=== PATIENT | female | born 1945 | race Hispanic/Latino ===

== ENCOUNTER 2018-03-12 14:20 | Emergency (ER) | payer OTHER ==
[2018-03-12 15:58] LABS: Absolute Lymphocytes (CBC) 1.4 K/uL (0.7-4.9); Absolute Monocytes 0.4 K/uL (0.1-1.3); Absolute Neutrophil 7.9 K/uL (1.8-8.0); Basophils % 0.5 % (0-1.3); Eosinophils % 0.6 % (0-4.4); Hematocrit 32.8 % (36.0-45.0); Lymphocytes % 13.9 % (15.3-44.8); MCH 28.1 pg (27.0-35.0); MCV 83.6 fL (80-100); Monocytes % 4.5 % (3.3-12.3); RBC Red Blood Cell Count 3.93 M/uL (3.86-4.86)
[2018-03-12] MEDS ORDERED: NA CHLORIDE 0.9% 500 ML ONE ×2 (16:01→16:46)
[2018-03-12] MEDS ORDERED: DIAZEPAM 10 MG/2 ML INJ SYRINGE ONE (16:03)
[2018-03-12 16:07] LABS: Bicarbonate 23 mEq/L (21-31); Glucose Level 169 mg/dL (65-120); Lipase 44 U/L (22-51); Potassium 3.7 mEq/L (3.6-5.0); Sodium Level 136 mEq/L (135-145)
[2018-03-12 16:13] LABS: ALT/SGPT 53 IU/L (10-60); AST/SGOT 54 IU/L (10-42); Albumin 3.3 g/dL (3.2-5.5); Alkaline Phosphatase 116 IU/L (42-121); BUN Blood Urea Nitrogen 32 mg/dL (6-20); Bilirubin Direct < 0.1 mg/dL (0-0.2); Bilirubin Total 0.6 mg/dL (0.3-1.2); Protein, Total 8.7 g/dL (6.0-8.3)
--- NOTE | 2018-03-12 16:33 | EKG ---
Test Date: 2018-03-12 Test Time: 15:38:13 Child Welfare Director: IRMA MEASUREMENT RESULTS: Intervals: Rate: 76 CA: 162 QRSD: 74 QT: 394 QTc: 443 [place]: P: 24 CA: 162 QRS: 32 T: 10 INTERPRETIVE STATEMENTS: Normal sinus rhythm Normal ECG Compared to ECG 07/05/2011 05:32:50 No significant changes Electronically Signed On 03-12-18 16:33:05 CDT by Shaun Warren
--- NOTE | 2018-03-12 17:02 | ER ---
Nurse's Notes [facility] Name: Jai Roman Age: 72 yrs Sex: Female : 1945 Arrival Date: 03/12/2018 Time: 14:24 Bed 2 Private MD: Tesfaye Wheeler R Diagnosis: Dehydration;Dizziness and giddiness Presentation: 03/12 14:32 Presenting complaint: Child states: pt has been real weak since last night and started iw vomiting this morning X 4, had some abd pain last night. Transition of care: patient was not received from another setting of care. Onset of symptoms was March 12, 2018. Initial Sepsis Screen: Does the patient meet any 2 criteria? No. Patient's initial sepsis screen is negative. Does the patient have a suspected source of infection? No. Patient's initial sepsis screen is negative. Care prior to arrival: None. 14:32 Method Of Arrival: Wheelchair iw 14:32 Acuity: ADALBERTO 3 iw Triage Assessment: 16:13 General: Appears in no apparent distress. GI: Reports nausea. tw2 Historical: - Allergies: 14:34 NKA; iw - Home Meds: 14:34 amlodipine 10 mg tab 1 tab once daily [Active]; carvedilol 25 mg Oral tab 1 tab 2 times iw per day [Active]; omeprazole 40 mg Oral cpDR 1 cap once daily [Active]; glimepiride 1 mg Oral tab twice a day [Active]; 16:12 metformin 1,000 mg Oral tab 1 tab 2 times per day [Active]; lisinopril 20 mg Oral tab 2 tw2 tabs once daily [Active]; pravastatin 20 mg Oral tab 1 tab once daily [Active]; - PMHx: 14:34 Diabetes - NIDDM; High Cholesterol; Hypertension; iw - PSHx: 14:34 Hernia repair; Cholecystectomy; iw - Immunization history:: Adult Immunizations not up to date. - Social history:: Smoking status: Patient/guardian denies using tobacco. Screenin:13 Abuse screen: Denies threats or abuse. Nutritional screening: No deficits noted. tw2 Tuberculosis screening: No symptoms or risk factors identified. Fall Risk None identified. Assessment: 15:50 General: Appears in no apparent distress. well groomed, Behavior is calm, cooperative, tw2 appropriate for age. Pain: Complains of pain in abdomen. Neuro: Level of Consciousness is awake, alert, obeys commands, Oriented to person, place, time, situation. Cardiovascular: Denies chest pain, shortness of breath, Heart tones S1 S2 Capillary refill < 3 seconds Patient's skin is warm and dry. Cardiovascular: Reports. Respiratory: GI: Abdomen is round non-distended, Bowel sounds present X 4 quads. : No signs and/or symptoms were reported regarding the genitourinary system. EENT: No signs and/or symptoms were reported regarding the EENT system. Derm: Skin is intact, is fragile, is thin, Skin temperature is warm. Musculoskeletal: Range of motion: intact in all extremities, Reports weakness in all over. 17:23 Reassessment: Patient appears in no apparent distress at this time. No changes from tw2 previously documented assessment. Patient and/or family updated on plan of care and expected duration. Pain level reassessed. Patient is alert, oriented x 3, equal unlabored respirations, skin warm/dry/pink. 17:43 Reassessment: Patient appears in no apparent distress at this time. No changes from tw2 previously documented assessment. Patient and/or family updated on plan of care and expected duration. Pain level reassessed. Patient is alert, oriented x 3, equal unlabored respirations, skin warm/dry/pink. Patient states feeling better. Vital Signs: 14:34 BP 147 / 68; Pulse 71; Resp 16; Temp 98.2(TE); Pulse Ox 98% on R/A; Weight 58.97 kg; iw Height 4 ft. 11 in. (149.86 cm); Pain 0/10; 15:36 BP 159 / 66; Pulse 74; Resp 17; Pulse Ox 99% on R/A; jb1 16:00 BP 141 / 61; Pulse 67; Resp 16; Pulse Ox 96% ; jl7 16:30 BP 139 / 71; Pulse 83; Resp 16; Pulse Ox 98% ; jl7 17:23 BP 145 / 62; Pulse 74; Resp 16; Pulse Ox 99% on R/A; tw2 14:34 Body Mass Index 26.26 (58.97 kg, 149.86 cm) iw ED Course: 14:24 Patient arrived in ED. mr 14:24 Tesfaye Wheeler MD is Private Physician. mr 14:32 Triage completed. iw 14:34 Arm band placed on. iw 15:36 Initial lab(s) drawn, by me. Inserted saline lock: 22 gauge in right antecubital area, jb1 using aseptic technique. Blood collected. 15:38 Rogelio Nguyen MD is Attending Physician. gs 15:47 Kacie Chicas RN is Primary Nurse. tw2 15:52 Placed in gown. Bed in low position. Side rails up X2. secured entrance monitor on. Pulse ox on. tw2 NIBP on. Warm blanket given. 15:52 EKG done, by technologist infectious disease. reviewed by Martín Mccain MD. at1 16:13 No provider procedures requiring assistance completed. tw2 17:16 Awaiting: completion of IV fluids prior to discharge. tw2 17:44 IV discontinued, intact, bleeding controlled, No redness/swelling at site. Pressure tw2 dressing applied. Administered Medications: 16:06 Drug: Valium 2 mg Route: IVP; Site: right antecubital; tw2 16:37 Follow up: Response: No adverse reaction tw2 16:06 Drug: NS 0.9% 500 ml Route: IV; Rate: bolus; Site: right antecubital; tw2 16:37 Follow up: Response: No adverse reaction; IV Status: Completed infusion; IV Intake: tw2 500ml 17:16 Drug: NS 0.9% 500 ml Route: IV; Rate: bolus; Site: right antecubital; tw2 17:43 Follow up: Response: No adverse reaction; IV Status: Completed infusion; IV Intake: tw2 500ml Intake: 16:37 IV: 500ml; Total: 500ml. tw2 17:43 IV: 500ml; Total: 1000ml. tw2 Outcome: 17:02 Discharge ordered by . gs 17:44 Discharged to home ambulatory, with family. tw2 17:44 Condition: stable 17:44 Discharge instructions given to patient, family, Instructed on discharge instructions, follow up and referral plans. Demonstrated understanding of instructions, follow-up care. 17:44 Patient left the ED. tw2 Signatures: Bon Gonzalez jb1 Suma Bianchi Irene, OLYA DOBSON iw Lani scott, blueprint trimmer EKG Tat1 Kacie Chicas RN RN tw2 David Stokes RN RN jl7 Nguyen, Rogelio, MD MD gs
--- NOTE | 2018-03-12 17:02 | EDPHYS ---
Physician Documentation [facility] Name: Jai Roman Age: 72 yrs Sex: Female : 1945 Arrival Date: 03/12/2018 Time: 14:24 Bed 2 Private MD: Tesfaye Wheeler R ED Physician Rogelio Nguyen HPI: 03/12 16:52 This 72 yrs old Female presents to ER via Wheelchair with complaints of gs Nausea, Weakness. 16:52 The patient presents with sense of spinning, vertigo. gs 16:55 Onset: The symptoms/episode began/occurred today. Context: occurred at home. Modifying gs factors: The symptoms are alleviated by nothing, the symptoms are aggravated by movement of head, standing up. Associated signs and symptoms: Pertinent positives: vomiting. Severity of symptoms: At their worst the symptoms were moderate in the emergency department the symptoms have improved markedly. The patient has experienced similar episodes in the past, a few times. The patient has not recently seen a physician. Historical: - Allergies: 14:34 NKA; iw - Home Meds: 14:34 amlodipine 10 mg tab 1 tab once daily [Active]; carvedilol 25 mg Oral tab 1 tab 2 times iw per day [Active]; omeprazole 40 mg Oral cpDR 1 cap once daily [Active]; glimepiride 1 mg Oral tab twice a day [Active]; 16:12 metformin 1,000 mg Oral tab 1 tab 2 times per day [Active]; lisinopril 20 mg Oral tab 2 tw2 tabs once daily [Active]; pravastatin 20 mg Oral tab 1 tab once daily [Active]; - PMHx: 14:34 Diabetes - NIDDM; High Cholesterol; Hypertension; iw - PSHx: 14:34 Hernia repair; Cholecystectomy; iw - Immunization history:: Adult Immunizations not up to date. - Social history:: Smoking status: Patient/guardian denies using tobacco. ROS: 16:55 All other systems are negative. gs Exam: 16:55 Head/Face: Normocephalic, atraumatic. ENT: Nares patent. No nasal discharge, no gs septal abnormalities noted. Tympanic membranes are normal and external auditory canals are clear. Oropharynx with no redness, swelling, or masses, exudates, or evidence of obstruction, uvula midline. Mucous membranes moist. Neck: Trachea midline, no thyromegaly or masses palpated, and no cervical lymphadenopathy. Supple, full range of motion without nuchal rigidity, or vertebral point tenderness. No Meningismus. 16:55 Chest/axilla: Normal chest wall appearance and motion. Nontender with no deformity. No lesions are appreciated. Cardiovascular: Regular rate and rhythm with a normal S1 and S2. No gallops, murmurs, or rubs. Normal PMI, no JVD. No pulse deficits. Respiratory: Lungs have equal breath sounds bilaterally, clear to auscultation and percussion. No rales, rhonchi or wheezes noted. No increased work of breathing, no retractions or nasal flaring. Abdomen/GI: Soft, non-tender, with normal bowel sounds. No distension or tympany. No guarding or rebound. No evidence of tenderness throughout. Back: No spinal tenderness. No costovertebral tenderness. Full range of motion. Skin: Warm, dry with normal turgor. Normal color with no rashes, no lesions, and no evidence of cellulitis. MS/ Extremity: Pulses equal, no cyanosis. Neurovascular intact. Full, normal range of motion. 16:55 Constitutional: The patient appears alert, awake. 16:55 Eyes: Extraocular movements: intact throughout, Conjunctiva: normal, Nystagmus: is not appreciated. 16:55 ECG was reviewed by the Attending Physician. 16:55 Neuro: Memory: is normal, Cranial nerves: grossly normal, CN II- XII are normal as tested, Cerebellar function: normal finger to nose testing, Motor: strength is 5/5 in all extremities, Sensation: no obvious gross deficits, no acute changes, Gait: is steady. Vital Signs: 14:34 BP 147 / 68; Pulse 71; Resp 16; Temp 98.2(TE); Pulse Ox 98% on R/A; Weight 58.97 kg; iw Height 4 ft. 11 in. (149.86 cm); Pain 0/10; 15:36 BP 159 / 66; Pulse 74; Resp 17; Pulse Ox 99% on R/A; jb1 16:00 BP 141 / 61; Pulse 67; Resp 16; Pulse Ox 96% ; jl7 16:30 BP 139 / 71; Pulse 83; Resp 16; Pulse Ox 98% ; jl7 17:23 BP 145 / 62; Pulse 74; Resp 16; Pulse Ox 99% on R/A; tw2 14:34 Body Mass Index 26.26 (58.97 kg, 149.86 cm) iw MDM: 15:47 Patient medically screened. gs 16:55 Differential diagnosis: cardiac arrhythmia, hypovolemia, vertigo. Data reviewed: vital gs signs, nurses notes. Response to treatment: the patient's symptoms have markedly improved after treatment, the patient's symptoms have resolved after treatment. 03/12 15:40 Order name: Basic Metabolic Panel; Complete Time: 16:38 [facility] 03/12 15:40 Order name: CBC with Diff; Complete Time: 16:38 [facility] 03/12 15:40 Order name: Hepatic Function; Complete Time: 16:38 [facility] 03/12 15:40 Order name: Lipase; Complete Time: 16:38 [facility] 03/12 15:40 Order name: IV Saline Lock; Complete Time: 15:41 [facility] 03/12 15:40 Order name: Labs collected and sent; Complete Time: 15:41 [facility] 03/12 15:40 Order name: Troponin (emerg Dept Use Only); Complete Time: 16:38 [facility] 03/12 15:48 Order name: EKG; Complete Time: 15:48 03/12 15:48 Order name: EKG - Nurse/Tech; Complete Time: 15:58 EC:55 Rate is 46 beats/min. Rhythm is regular. [place] interval is normal. QRS interval is normal. gs QT interval is normal. No ST changes noted. Clinical impression: Normal ECG. Interpreted by me. Administered Medications: 16:06 Drug: Valium 2 mg Route: IVP; Site: right antecubital; tw2 16:37 Follow up: Response: No adverse reaction tw2 16:06 Drug: NS 0.9% 500 ml Route: IV; Rate: bolus; Site: right antecubital; tw2 16:37 Follow up: Response: No adverse reaction; IV Status: Completed infusion; IV Intake: tw2 500ml 17:16 Drug: NS 0.9% 500 ml Route: IV; Rate: bolus; Site: right antecubital; tw2 17:43 Follow up: Response: No adverse reaction; IV Status: Completed infusion; IV Intake: tw2 500ml Disposition: 03/12/18 17:02 Discharged to Home. Impression: Dehydration, Dizziness and giddiness. - Condition is Stable. - Discharge Instructions: Dehydration, Elderly, Dizziness. - Medication Reconciliation Form, Thank You Letter, Antibiotic Education, Prescription Opioid Use form. - Follow up: Private Physician; When: 2 - 3 days; Reason: Re-evaluation by your physician. Signatures: Dispatcher [employer] EDMS GonzalezBon morocho jb1 Lily Rodriguez RN RN iw Kacie Chicas RN RN tw2 Rogelio Nguyen MD MD gs Corrections: (The following items were deleted from the chart) 16:01 15:41 AMYLASE, SERUM+C.LAB.BRZ ordered. EDMS EDMS 16:01 15:41 Creatinine for Radiology+C.LAB.BRZ ordered. EDMS EDMS
[2018-03-12 17:54] VITALS: TEMP 98.2
[2018-03-12 17:59] VITALS: BP 145/62; O2SAT 99
== END 2018-03-12 17:44 | disposition home or self-care (01) ==
LOC: ER 14:20
DX: E86.0 Dehydration (principal); E11.9 Type 2 diabetes mellitus without complications; E78.5 Hyperlipidemia, unspecified; I10 Essential (primary) hypertension
CPT/HCPCS: 36415; 80048; 80076; 83690; 84484; 85025; 93005; 96361; 96374; 99284; J3360

== ENCOUNTER 2019-02-11 16:23 | Inpatient (IN) | payer OTHER ==
[2019-02-11 17:37] LABS: Absolute Lymphocytes (CBC) 0.3 K/uL (0.7-4.9); Absolute Neutrophil 9.6 K/uL (1.8-8.0); Basophils % 0.3 % (0-1.3); Eosinophils % 0.2 % (0-4.4); Hematocrit 32.8 % (36.0-45.0); Lymphocytes % 3.1 % (15.3-44.8); MPV 8.1 fL (7.6-11.3); Monocytes % 0.4 % (3.3-12.3)
--- NOTE | 2019-02-11 17:38 | RAD REPORT ---
EXAM DESCRIPTION: RAD - Chest Single View - 02/11/2019 5:32 pm CLINICAL HISTORY: CONGESTION Chest pain. COMPARISON: Chest Single View dated 03/11/2017; Chest Single View dated 02/17/2016; CHEST SINGLE VIEW dated 07/05/2011; CHEST SINGLE VIEW dated 06/25/2011 FINDINGS: Portable technique limits examination quality. The lungs are grossly clear. The heart is normal in size. No displaced fractures. IMPRESSION: No acute intrathoracic process suspected.
[2019-02-11 17:51] LABS: Protime INR 1.02
[2019-02-11 17:55] LABS: ALT/SGPT 20 U/L (12-78); AST/SGOT 24 U/L (15-37); Albumin 2.8 g/dL (3.4-5.0); Alkaline Phosphatase 147 U/L (45-117); BUN Blood Urea Nitrogen 41 mg/dL (7-18); Bicarbonate 19 mmol/L (21-32); Bilirubin Direct 0.3 mg/dL (0-0.2); Bilirubin Total 0.6 mg/dL (0.2-1.0); CKMB Creatine Kinase MB < 1.0 ng/mL (0.3-3.6); Creatine Phosphokinase 60 U/L (26-192); Glucose Level 213 mg/dL (74-106); Lipase 76 U/L (73-393); Potassium 3.5 mmol/L (3.5-5.1); Protein, Total 7.1 g/dL (6.4-8.2); Sodium Level 138 mmol/L (136-145); Troponin (Emerg Dept Use Only) < 0.02 ng/mL (0.0-0.045)
[2019-02-11] MEDS ORDERED: NA CHLORIDE 0.9% 1,000 ML ONE ×2 (18:20→20:30)
[2019-02-11] MEDS ORDERED: ACETAMINOPHEN 325 MG TABLET ONE (18:20)
[2019-02-11] MEDS ORDERED: CEFTRIAXONE 1000 MG/VIAL ONE (18:20)
[2019-02-11] MEDS ORDERED: NA CHLORIDE 0.9% 100 ML IV ONE (18:20)
[2019-02-11] MEDS ORDERED: METRONIDAZOLE 500mg IVPB 500 MG/100 ML BAG IV ONE (18:55)
--- NOTE | 2019-02-11 19:09 | RAD REPORT ---
EXAM DESCRIPTION: CT - Abdomen Pelvis Wo Contrast - 02/11/2019 6:56 pm CLINICAL HISTORY: Abdominal pain. ABD PAIN COMPARISON: Abdomen Pelvis W Contrast dated 02/16/2016 TECHNIQUE: CT imaging of the abdomen and pelvis was performed without contrast. Solid organ and vasc ular assessment is limited due to lack of IV contrast. All CT scans are performed using dose optimization technique as appropriate and may include automated exposure control or mA/KV adjustment according to patient size. FINDINGS: The lower lung wheat are clear.Cholecystectomy clips. The liver, spleen, pancreas, right adrenal gland and kidneys are within normal limits for a limited n on-contrast examination.23 mm left adrenal mass is present, likely an adenoma. No bowel obstruction, free air, free fluid or abscess. Sigmoid diverticulosis is present without dive rticulitis. The appendix is normal. Small fat containing umbilical hernia. The osseous structures are within normal limits. IMPRESSION: No acute intra-abdominal or pelvic findings. A limited non-contrast examination was performed as detailed.
--- NOTE | 2019-02-11 19:19 | EDPHYS ---
Physician Documentation [facility] Name: Jai Roman Age: 73 yrs Sex: Female : 1945 Arrival Date: 02/11/2019 Time: 16:28 Bed 4 Private MD: ED Physician Martín Mccain HPI: 02/11 17:10 This 73 yrs old Female presents to ER via EMS with complaints of Flu Symptoms. flakito 17:10 The patient presents with abdominal pain in the upper abdomen, in the lower abdomen, flakito abdominal distention in the upper abdomen, in the lower abdomen. Onset: The symptoms/episode began/occurred 1 day(s) ago. The patient or guardian reports cough. Onset: The symptoms/episode began/occurred this morning. Modifying factors: The symptoms are alleviated by nothing. the symptoms are aggravated by nothing. weakness, nausea and vomiting, fever. Associated signs and symptoms: Pertinent positives: fever, nausea, vomiting. Historical: - Allergies: 16:31 NKA; bp - Home Meds: 16:31 metformin 1,000 mg Oral tab 1 tab 2 times per day [Active]; amlodipine 10 mg tab 1 tab bp once daily [Active]; carvedilol 25 mg Oral tab 1 tab 2 times per day [Active]; glimepiride 1 mg Oral tab twice a day [Active]; lisinopril 20 mg Oral tab 2 tabs once daily [Active]; omeprazole 40 mg Oral cpDR 1 cap once daily [Active]; pravastatin 20 mg Oral tab 1 tab once daily [Active]; - PMHx: 16:31 Diabetes - NIDDM; High Cholesterol; Hypertension; bp - Immunization history:: Adult Immunizations up to date, Flu vaccine is not up to date. - Social history:: Smoking status: Patient/guardian denies using tobacco. - Ebola Screening: : Patient negative for fever greater than or equal to 101.5 degrees Fahrenheit, and additional compatible Ebola Virus Disease symptoms Patient denies exposure to infectious person Patient denies travel to an Ebola-affected area in the 21 days before illness onset No symptoms or risks identified at this time. ROS: 17:11 Constitutional: Negative for fever, chills, and weight loss, Eyes: Negative for injury, flakito pain, redness, and discharge, ENT: Negative for injury, pain, and discharge, Neck: Negative for injury, pain, and swelling, Cardiovascular: Negative for chest pain, palpitations, and edema, Back: Negative for injury and pain, : Negative for injury, bleeding, discharge, and swelling, MS/Extremity: Negative for injury and deformity, Skin: Negative for injury, rash, and discoloration, Neuro: Negative for headache, weakness, numbness, tingling, and seizure. 17:11 Respiratory: Positive for cough. 17:11 Abdomen/GI: Positive for abdominal pain, nausea and vomiting, of the left upper quadrant and left lower quadrant. Exam: 17:11 Head/Face: Normocephalic, atraumatic. Eyes: Pupils equal round and reactive to light, flakito extra-ocular motions intact. Lids and lashes normal. Conjunctiva and sclera are non-icteric and not injected. Cornea within normal limits. Periorbital areas with no swelling, redness, or edema. ENT: Nares patent. No nasal discharge, no septal abnormalities noted. Tympanic membranes are normal and external auditory canals are clear. Oropharynx with no redness, swelling, or masses, exudates, or evidence of obstruction, uvula midline. Mucous membranes moist. Neck: Trachea midline, no thyromegaly or masses palpated, and no cervical lymphadenopathy. Supple, full range of motion without nuchal rigidity, or vertebral point tenderness. No Meningismus. Chest/axilla: Normal chest wall appearance and motion. Nontender with no deformity. No lesions are appreciated. Respiratory: Lungs have equal breath sounds bilaterally, clear to auscultation and percussion. No rales, rhonchi or wheezes noted. No increased work of breathing, no retractions or nasal flaring. Back: No spinal tenderness. No costovertebral tenderness. Full range of motion. Female : Normal external genitalia. Skin: Warm, dry with normal turgor. Normal color with no rashes, no lesions, and no evidence of cellulitis. MS/ Extremity: Pulses equal, no cyanosis. Neurovascular intact. Full, normal range of motion. Neuro: Awake and alert, GCS 15, oriented to person, place, time, and situation. Cranial nerves II-XII grossly intact. Motor strength 5/5 in all extremities. Sensory grossly intact. Cerebellar exam normal. Normal gait. Psych: Awake, alert, with orientation to person, place and time. Behavior, mood, and affect are within normal limits. 17:11 Cardiovascular: Rate: tachycardic, Rhythm: regular, Pulses: Pulses are 4+ in bilateral radial, brachial, femoral, popliteal, posterior tibial and and dorsalis pedis arteries.. Heart sounds: normal, JVD: is not appreciated. 17:11 Abdomen/GI: Inspection: distension, Bowel sounds: normal, Palpation: mild abdominal tenderness, in the left upper quadrant and left lower quadrant, Liver: no appreciated palpable abnormalities, Hernia: not appreciated. Vital Signs: 16:31 BP 172 / 65; Pulse 106; Resp 20; Temp 102.8; Pulse Ox 97% ; Weight 72.57 kg; Height 4 bp ft. 11 in. (149.86 cm); 17:00 BP 139 / 49; Pulse 105; Resp 14; Pulse Ox 96% ; bp 18:05 BP 131 / 106; Pulse 96; Resp 18; Pulse Ox 96% ; bp 19:22 BP 146 / 73; Pulse 90; Resp 19 S; Temp 99.2(O); Pulse Ox 98% on R/A; cc3 20:30 BP 128 / 57; Pulse 86; Resp 18 S; Pulse Ox 96% on R/A; cc3 21:31 BP 129 / 61; Pulse 80; Resp 19 S; Pulse Ox 98% on R/A; cc3 16:31 Body Mass Index 32.32 (72.57 kg, 149.86 cm) bp MDM: 16:55 Patient medically screened. [facility] 17:14 Data reviewed: vital signs, nurses notes, lab test result(s), EKG, radiologic studies, [facility] CT scan, plain films. 02/11 16:36 Order name: Basic Metabolic Panel bp 02/11 16:36 Order name: Blood Culture Adult (2) bp 02/11 16:36 Order name: CBC with Diff bp 02/11 16:36 Order name: Ckmb bp 02/11 16:36 Order name: CPK bp 02/11 16:36 Order name: Lactate; Complete Time: 18:09 bp 02/11 16:36 Order name: LFT's; Complete Time: 18:09 bp 02/11 16:36 Order name: Lipase; Complete Time: 18:09 bp 02/11 16:36 Order name: Procalcitonin; Complete Time: 19:12 bp 02/11 16:36 Order name: Protime (+inr); Complete Time: 18:09 bp 02/11 16:36 Order name: Ptt, Activated; Complete Time: 18:09 bp 02/11 16:36 Order name: Troponin (emerg Dept Use Only); Complete Time: 18:09 bp 02/11 16:36 Order name: Urine Microscopic Only 02/11 16:36 Order name: Flu; Complete Time: 19:12 bp 02/11 16:36 Order name: Chest Single View XRAY; Complete Time: 17:41 bp 02/11 16:37 Order name: Basic Metabolic Panel; Complete Time: 18:09 EDKY 02/11 16:37 Order name: Blood Culture [facility] 02/11 16:37 Order name: CBC with Automated Diff; Complete Time: 17:41 [facility] 02/11 16:37 Order name: CKMB Creatine Kinase MB; Complete Time: 18:09 [facility] 02/11 16:37 Order name: Creatine Phosphokinase; Complete Time: 18:09 [facility] 02/11 17:09 Order name: Urine Culture [facility] 02/11 17:10 Order name: Urine Culture [facility] 02/11 18:11 Order name: Magnesium [facility] 02/11 18:11 Order name: NT PRO-BNP [facility] 02/11 18:47 Order name: Abdomen ; Complete Time: 19:12 [facility] 02/11 19:33 Order name: Urine Dipstick--Ancillary (enter results) [facility] 02/11 20:59 Order name: Lactate Sepsis 2 HR Follow-up [facility] 02/11 16:36 Order name: Accucheck; Complete Time: 17:27 bp 02/11 16:36 Order name: Cardiac monitoring; Complete Time: 17:28 bp 02/11 16:36 Order name: EKG - Nurse/Tech; Complete Time: 17:28 bp 02/11 16:36 Order name: IV Saline Lock - Large Bore; Complete Time: 17:28 bp 02/11 16:36 Order name: Labs collected and sent; Complete Time: 17:27 bp 02/11 16:36 Order name: O2 Per Protocol; Complete Time: 17:27 bp 02/11 16:36 Order name: O2 Sat Monitoring; Complete Time: 17:27 bp 02/11 16:36 Order name: Urine Dipstick-Ancillary (obtain specimen); Complete Time: 19:24 bp 02/11 18:11 Order name: EKG; Complete Time: 18:11 flakito 02/11 18:11 Order name: IV Saline Lock; Complete Time: 18:34 [facility] Administered Medications: 17:30 Drug: NS 0.9% (30 ml/kg) 30 ml/kg Route: IV; Rate: bolus; Site: right antecubital; bp 20:35 Follow up: Response: No adverse reaction; IV Status: Infusion continued upon admission cc3 17:30 Drug: Rocephin - (cefTRIAXone) 1 grams Route: IVPB; Infused Over: 30 mins; Site: right bp antecubital; 17:30 Drug: Tylenol 650 mg Route: PO; bp 18:36 Follow up: Response: No adverse reaction bp 18:40 Drug: Flagyl 500 mg Volume: 100 ml; Route: IVPB; Rate: 200 ml/hr; Infused Over: 30 bp mins; Site: right antecubital; 19:50 Follow up: Response: No adverse reaction; IV Status: Completed infusion; IV Intake: cc3 100ml Disposition: 02/11/19 19:18 Hospitalization ordered by Tesfaye Wheeler for Observation. Preliminary diagnosis are Fever, unspecified, Weakness, Type 2 diabetes mellitus, Vomiting, Cough, Abdominal tenderness. - Bed requested for Telemetry/MedSurg (observation). - Status is Observation. cc3 - Condition is Stable. - Problem is new. - Symptoms have improved. UTI on Admission? Yes Signatures: Dispatcher [employer] EDKY Martín Mccain MD MD cha Garcia, Cindy, RN RN Jimmie Cota RN RN bp Cordel, Charlene cc3 Corrections: (The following items were deleted from the chart) 18:47 17:09 Abdomen Pelvis W Con+CT.RAD.BRZ ordered. [facility] EDMS 19:32 19:18 Hospitalization Ordered by Tesfaye Wheeler MD for Inpatient Admission. Preliminary [facility] diagnosis is Fever, unspecified; Weakness; Type 2 diabetes mellitus; Vomiting; Cough; Abdominal tenderness. Bed requested for Telemetry/MedSurg (Inpatient). Status is Inpatient Admission. Condition is Stable. Problem is new. Symptoms have improved. UTI on Admission? No. flakito 20:05 19:32 02/11/2019 19:18 Hospitalization Ordered by Tesfaye Wheeler MD for Observation. Preliminary diagnosis is Fever, unspecified; Weakness; Type 2 diabetes mellitus; Vomiting; Cough; Abdominal tenderness. Bed requested for Telemetry/MedSurg (observation). Status is Observation. Condition is Stable. Problem is new. Symptoms have improved. UTI on Admission? Yes. [facility] 21:22 18:11 BLOOD CULTURE*+BA.LAB.BRZ ordered. EDKY EDMS 21:48 20:05 02/11/2019 19:18 Hospitalization Ordered by Tesfaye Wheeler MD for Observation. cc3 Preliminary diagnosis is Fever, unspecified; Weakness; Type 2 diabetes mellitus; Vomiting; Cough; Abdominal tenderness. Bed requested for Telemetry/MedSurg (observation). Status is Observation. Condition is Stable. Problem is new. Symptoms have improved. UTI on Admission? Yes. cg
--- NOTE | 2019-02-11 19:19 | ER ---
Nurse's Notes [facility] Name: Jai Roman Age: 73 yrs Sex: Female : 1945 Arrival Date: 02/11/2019 Time: 16:28 Bed 4 Private MD: Diagnosis: Fever, unspecified;Weakness;Type 2 diabetes mellitus;Vomiting;Cough;Abdominal tenderness Presentation: 02/11 16:28 Presenting complaint: EMS states: FLU-LIKE S/S. Transition of care: patient was not bp received from another setting of care. Onset of symptoms was February 11, 2019. Risk Assessment: Do you want to hurt yourself or someone else? Patient reports no desire to harm self or others. Initial Sepsis Screen: Does the patient meet any 2 criteria? Temp <36.0*C (96.8*F)) or > 38.3*C (100.9*F). HR > 90 bpm. Does the patient have a suspected source of infection? Yes: Productive cough/pneumonia. Care prior to arrival: None. 16:28 Method Of Arrival: EMS: [facility] bp 16:28 Acuity: ADALBERTO 3 bp Triage Assessment: 16:31 General: Appears in no apparent distress. comfortable, ill, obese, Behavior is calm, bp cooperative, appropriate for age. Pain: Complains of pain in GENERALIZED. EENT: No deficits noted. Neuro: Level of Consciousness is awake, alert, obeys commands, Oriented to person, place, time, situation, Appropriate for age. Cardiovascular: Rhythm is sinus tachycardia. Respiratory: Airway is patent Respiratory effort is even, unlabored, Respiratory pattern is regular, symmetrical. GI: Abdomen is obese. : No signs and/or symptoms were reported regarding the genitourinary system. Derm: No deficits noted. Musculoskeletal: Circulation, motion, and sensation intact. Range of motion: intact in all extremities. Historical: - Allergies: 16:31 NKA; bp - Home Meds: 16:31 metformin 1,000 mg Oral tab 1 tab 2 times per day [Active]; amlodipine 10 mg tab 1 tab bp once daily [Active]; carvedilol 25 mg Oral tab 1 tab 2 times per day [Active]; glimepiride 1 mg Oral tab twice a day [Active]; lisinopril 20 mg Oral tab 2 tabs once daily [Active]; omeprazole 40 mg Oral cpDR 1 cap once daily [Active]; pravastatin 20 mg Oral tab 1 tab once daily [Active]; - PMHx: 16:31 Diabetes - NIDDM; High Cholesterol; Hypertension; bp - Immunization history:: Adult Immunizations up to date, Flu vaccine is not up to date. - Social history:: Smoking status: Patient/guardian denies using tobacco. - Ebola Screening: : Patient negative for fever greater than or equal to 101.5 degrees Fahrenheit, and additional compatible Ebola Virus Disease symptoms Patient denies exposure to infectious person Patient denies travel to an Ebola-affected area in the 21 days before illness onset No symptoms or risks identified at this time. Screenin:32 Abuse screen: Denies threats or abuse. Denies injuries from another. Nutritional bp screening: No deficits noted. Tuberculosis screening: No symptoms or risk factors identified. Fall Risk None identified. Assessment: 16:32 General: SEE TRIAGE NOTE. bp 19:30 Reassessment: Patient appears in no apparent distress at this time. Patient and/or cc3 family updated on plan of care and expected duration. Pain level reassessed. Patient is alert, oriented x 3, equal unlabored respirations, skin warm/dry/pink. Received this female patient from morning shift as a case of flulike symptoms. With IV cannula gauge 20 at the right ACV with ongoing IV fluids and flagyl antibiotic infusing well. 20:30 Reassessment: Patient appears in no apparent distress at this time. Patient and/or cc3 family updated on plan of care and expected duration. Pain level reassessed. Patient is alert, oriented x 3, equal unlabored respirations, skin warm/dry/pink. Repeat lactate level taken and sent to lab. 20:35 Reassessment: Room available in 431, report called and handed over to OLYA Tovar for cc3 continuity of care. 21:45 Reassessment: Patient appears in no apparent distress at this time. Patient and/or cc3 family updated on plan of care and expected duration. Pain level reassessed. Patient is alert, oriented x 3, equal unlabored respirations, skin warm/dry/pink. Patient left ER for admission vitally stable by stretcher escorted by cmm technicianstevo Perea and the patient's son. Vital Signs: 16:31 BP 172 / 65; Pulse 106; Resp 20; Temp 102.8; Pulse Ox 97% ; Weight 72.57 kg; Height 4 bp ft. 11 in. (149.86 cm); 17:00 BP 139 / 49; Pulse 105; Resp 14; Pulse Ox 96% ; bp 18:05 BP 131 / 106; Pulse 96; Resp 18; Pulse Ox 96% ; bp 19:22 BP 146 / 73; Pulse 90; Resp 19 S; Temp 99.2(O); Pulse Ox 98% on R/A; cc3 20:30 BP 128 / 57; Pulse 86; Resp 18 S; Pulse Ox 96% on R/A; cc3 21:31 BP 129 / 61; Pulse 80; Resp 19 S; Pulse Ox 98% on R/A; cc3 16:31 Body Mass Index 32.32 (72.57 kg, 149.86 cm) bp ED Course: 16:28 Patient arrived in ED. bp 16:29 Triage completed. bp 16:31 Arm band placed on. bp 16:32 Patient has correct armband on for positive identification. Bed in low position. Call bp light in reach. Side rails up X2. 16:55 Martín Mccain MD is Attending Physician. flakito 17:15 Inserted saline lock: 20 gauge in right antecubital area, using aseptic technique. bp Blood collected. 17:27 Jimmie Cota, OLYA is Primary Nurse. bp 17:32 Chest Single View XRAY In Process Unspecified. EDMS 17:36 Basic Metabolic Panel Sent. bp 17:36 Blood Culture Adult (2) Sent. bp 17:36 Ckmb Sent. bp 17:36 CBC with Diff Sent. bp 17:37 CPK Sent. bp 17:39 Oral contrast reported to be complete. vm2 18:56 CT completed. Patient tolerated procedure well. Patient moved to CT via stretcher. vm2 Patient moved back from CT. 18:56 Abdomen In Process Unspecified. EDMS 19:17 Tesfaye Wheeler MD is Hospitalizing Provider. flakito 20:35 No provider procedures requiring assistance completed. Patient admitted, IV remains in cc3 place. Administered Medications: 17:30 Drug: NS 0.9% (30 ml/kg) 30 ml/kg Route: IV; Rate: bolus; Site: right antecubital; bp 20:35 Follow up: Response: No adverse reaction; IV Status: Infusion continued upon admission cc3 17:30 Drug: Rocephin - (cefTRIAXone) 1 grams Route: IVPB; Infused Over: 30 mins; Site: right bp antecubital; 17:30 Drug: Tylenol 650 mg Route: PO; bp 18:36 Follow up: Response: No adverse reaction bp 18:40 Drug: Flagyl 500 mg Volume: 100 ml; Route: IVPB; Rate: 200 ml/hr; Infused Over: 30 bp mins; Site: right antecubital; 19:50 Follow up: Response: No adverse reaction; IV Status: Completed infusion; IV Intake: cc3 100ml Intake: 19:50 IV: 100ml; Total: 100ml. cc3 Outcome: 19:18 Decision to Hospitalize by Provider. flakito 21:45 Admitted to Tele accompanied by tech, family with patient, via stretcher, room 431, cc3 with chart, Report called to OLYA Tovar 21:45 Condition: stable cc3 21:45 Instructed on the need for admit, Demonstrated understanding of instructions. 21:48 Patient left the ED. cc3 Signatures: Dispatcher [employer] Martín Bejarano MD MD cha McGuire, [facility] Jimmie Cota, RN RN Malena Chávez cc3
[2019-02-11 19:47] LABS: Urine Blood 1+ (NEG); Urine Glucose TRACE (NEG); Urine Protein 3+ (NEG); Urine Specific Gravity 1.015 (1.005-1.030)
[2019-02-11 20:05] LABS: Magnesium 2.1 mg/dL (1.8-2.4)
[2019-02-11 20:12] LABS: Urine Amorphous Sediment 1+ /HPF (NONE SEEN); Urine Bacteria 20-50 /HPF (<20); Urine Culture Reflex Order NOT NEEDED; Urine RBC <5 /HPF (NONE SEEN)
[2019-02-11] MEDS ORDERED: GLUCAGON 1 MG/VIAL IM PRN (22:05)
[2019-02-11] MEDS: INSULIN -REGULAR HUMAN 50 UNIT/0.5 ML ML SQ SCH (22:05)
[2019-02-11] MEDS ORDERED: MORPHINE 4 MG/ML SYR IV PRN (22:05)
[2019-02-11] MEDS ORDERED: D50W 25 GM/50 ML SYRINGE IV PRN (22:05)
[2019-02-11] MEDS: FAMOTIDINE 20 MG/2 ML VIAL IV SCH (23:04)
[2019-02-11] MEDS: NA CHLORIDE 0.9% 1,000 ML IV SCH (23:04)
[2019-02-11] MEDS: METRONIDAZOLE 500mg IVPB 500 MG/100 ML BAG IV SCH (23:54)
[2019-02-12 03:51] LABS: Absolute Lymphocytes (CBC) 1.4 K/uL (0.7-4.9); Absolute Monocytes 1.4 K/uL (0.1-1.3); Absolute Neutrophil 22.7 K/uL (1.8-8.0); Basophils % 0.1 % (0-1.3); Hematocrit 27.8 % (36.0-45.0); Lymphocytes % 5.4 % (15.3-44.8); MPV 8.1 fL (7.6-11.3); Monocytes % 5.5 % (3.3-12.3); RBC Red Blood Cell Count 3.19 M/uL (3.86-4.86)
[2019-02-12 03:58] LABS: Potassium 3.3 mmol/L (3.5-5.1)
[2019-02-12 04:33] VITALS: BMI 32.3
[2019-02-12 05:09] LABS: Blood Morphology Comment NOT SEEN (NOT SEEN); Platelet Estimate ADEQ
[2019-02-12] MEDS ORDERED: CARVEDILOL 12.5 MG TAB PO SCH (06:00)
[2019-02-12] MEDS: METRONIDAZOLE 500mg IVPB 500 MG/100 ML BAG IV SCH ×4 (06:33→23:56)
[2019-02-12] MEDS: INSULIN -REGULAR HUMAN 50 UNIT/0.5 ML ML SQ SCH ×4 (07:30→21:02)
--- NOTE | 2019-02-12 08:14 | RAD REPORT ---
EXAM DESCRIPTION: RAD - Chest Single View - 02/12/2019 6:40 am CLINICAL HISTORY: Chest Pain Chest pain. COMPARISON: Chest Single View dated 02/11/2019; Chest Single View dated 03/11/2017; Chest Single View dated 02/17/2016; CHEST SINGLE VIEW dated 07/05/2011 FINDINGS: Portable technique limits examination quality. The lungs are grossly clear. The heart is mildly enlarged in size. No displaced fractures. IMPRESSION: No acute intrathoracic process suspected.
[2019-02-12] MEDS: ACETAMINOPHEN 500 MG TAB PO PRN (08:16)
[2019-02-12] MEDS: ASPIRIN EC 81 MG TAB PO SCH (08:16)
[2019-02-12] MEDS: NA CHLORIDE 0.9% 1,000 ML IV SCH ×3 (08:18→22:21)
[2019-02-12] MEDS ORDERED: CEFTRIAXONE 1 GM/NS 50 ML 1 GM/50 ML BAG IV SCH (09:00)
[2019-02-12] MEDS ORDERED: CEFTRIAXONE/SWI 1gm 1 GM/10 ML SYR IV SCH (09:00)
[2019-02-12] MEDS ORDERED: HOME MED 1 EA UNK (Omeprazole [Prilosec] 40 MG) PO SCH (09:00)
--- NOTE | 2019-02-12 09:14 | EKG ---
Test Date: 2019-02-12 Test Time: 07:46:04 Ethologist: IRMA MEASUREMENT RESULTS: Intervals: Rate: 81 NE: 178 QRSD: 88 QT: 392 QTc: 455 [place]: P: 35 NE: 178 QRS: 25 T: 52 INTERPRETIVE STATEMENTS: Normal sinus rhythm Normal ECG Compared to ECG 02/11/2019 20:27:02 Myocardial infarct finding no longer present Electronically Signed On 02-12-19 09:13:45 CDT by Shaun Warren
--- NOTE | 2019-02-12 09:16 | EKG ---
Test Date: 2019-02-11 Test Time: 20:27:02 Advanced Practice Rn: EMORY MEASUREMENT RESULTS: Intervals: Rate: 86 IN: 174 QRSD: 90 QT: 366 QTc: 437 [place]: P: 29 IN: 174 QRS: 23 T: 43 INTERPRETIVE STATEMENTS: Normal sinus rhythm Possible Anterior infarct, age undetermined Abnormal ECG Compared to ECG 03/12/2018 15:38:13 Myocardial infarct finding now present Electronically Signed On 02-12-19 09:15:27 CDT by Shaun Warren
[2019-02-12] MEDS: CARVEDILOL 25 MG TAB PO SCH ×2 (10:28→21:02)
[2019-02-12] MEDS: AMLODIPINE 5 MG TAB PO SCH (10:29)
[2019-02-12] MEDS: ATORVASTATIN 10 MG TAB PO SCH (21:02)
[2019-02-12] MEDS: FAMOTIDINE 20 MG/2 ML VIAL IV SCH (21:02)
[2019-02-12] MEDS: CIPROFLOXACIN 400mg IV 400 MG/200 ML BAG IV SCH (22:21)
[2019-02-13] MEDS: ACETAMINOPHEN 500 MG TAB PO PRN ×2 (00:23→17:16)
[2019-02-13] MEDS: ONDANSETRON 4 MG/2 ML VIAL IV PRN (00:35)
--- NOTE | 2019-02-13 05:15 | CON ---
Date of Consultation: 02/12/2019 Chief Complaint: [id number] kidney injury, abnormal renal function test. The patient has hist ory of chronic kidney disease stage 3. Blood work done in August 2018 showed GFR ranging from 32 to 37, creatinine level was 1.54 and 1.85. On arrival to the hospital, the patient was found to have e levated creatinine up to 3.4, previous baseline in 2019 was fluctuating up to 2.5. The patient has nonoliguric urine output. Electrolytes in acceptable control. There is no metabolic acidosis. Nephrology consultation is requested for [id number] kidney injury. The patient had an abdominal CT scan done without contrast on February 12, it did not show acute intraabdominal or pe lvic findings. There was no hydronephrosis. Kidneys are within normal limits. 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 No abscess formation or free fluid or free air present. History Of Present Illness: The patient is a 73-year-old woman who presented to emergency room and w as brought by EMS, was complaining of flu-like symptoms. The patient was complaining of abdominal pa in in the upper quadrants and lower quadrant suprapubic. CT scan did not show acute changes. There is no bowel obstruction, and there is no hydronephrosis. The patient has history of diabetes, and home medication includes metformin. Previously, she was not seen by electrical electronics engineers. The patient was taking multiple blood pressure medication including amlodipine, lisinopril. She is o n metformin and glimepiride for diabetes. She was taking pravastatin for hypercholesterolemia and om eprazole for reflux. Review of Systems: Constitutional: The patient denies fever chills. Eyes: Denies vision changes. Ears, Nose, Mouth, and Throat: Denies sore throat or earache. Respiratory: Denies PND or orthopnea. Cardiovascular: Denies chest pain or palpitation. GI: Denies nausea or vomiting. : Denies dysuria or hematuria. Musculoskeletal: Denies muscle aches or joint swelling. All other systems reviewed and all are negative. Past Medical History: Diabetes mellitus, hypertension, hyperlipidemia, chronic kidney disease stage 3. Social History: Denies tobacco, alcohol, or illicit drugs. Family History: No kidney disease in the family. Physical Examination: General: The patient is awake, alert, follows commands. Eyes: Anicteric sclerae. EOMI. Ears, Nose, Mouth, and Throat: Oral mucosa moist. No pallor. Neck: Supple. No JVD. No bruits. Lungs: A few crackles at bases. Heart: S1, S2. No pericardial friction rub. Abdomen: Soft, benign, nontender. Extremities: No edema. Vital Signs: Blood pressure is 138/60, heart rate 76, temperature 99.5. Laboratory Data: Blood work showed sodium 143, potassium 3.3, chloride 111, CO2 23, BUN is 38, creat inine 3.11, calcium 7.7, lactic acid 1.1. pH is 6.0, specific gravity 1.015, ketones negative, blood 1+, leukocyte esterase trace, wbc's 10-20, squamous cells 5-10, rbc's less than 5, proteinuria is 3+ . Impression And Plan: 1.Diabetic kidney disease with proteinuria. Monitor for any evidence of nephrotic syndrome. 2.Urinary tract infection. Continue antibiotics. 3.Wmjeq-ba-[id number] kidney injury secondary to prerenal azotemia. Monitor urine output and fluid bal ance. Continue IV fluids. Monitor electrolytes. Adjust potassium replacement as needed. 4.Diabetes mellitus. The patient is not a candidate for metformin. The patient cannot take metform in due to risk of lactic acidosis. At this point, there is no evidence of lactic acidosis. 5.Hypertension. Lisinopril is on hold because of acute kidney injury. Evaluate the renal panel. T he patient is tolerating p.o. intake. Continue IV fluids along with hydration by mouth to prevent renal hypoperfusion and treat ac eric kidney injury. EB/MODL Voice ID: [id number] Report ID: [id number]
[2019-02-13] MEDS: METRONIDAZOLE 500mg IVPB 500 MG/100 ML BAG IV SCH ×4 (05:50→23:57)
[2019-02-13] MEDS: NA CHLORIDE 0.9% 1,000 ML IV SCH ×3 (05:50→23:57)
[2019-02-13 06:06] LABS: Absolute Lymphocytes (CBC) 1.6 K/uL (0.7-4.9); Absolute Neutrophil 14.3 K/uL (1.8-8.0); Basophils % 0.2 % (0-1.3); Eosinophils % 0.2 % (0-4.4); Hematocrit 26.6 % (36.0-45.0); Lymphocytes % 9.5 % (15.3-44.8); MPV 8.3 fL (7.6-11.3); Monocytes % 5.9 % (3.3-12.3); RBC Red Blood Cell Count 3.04 M/uL (3.86-4.86)
[2019-02-13 06:16] LABS: Phosphorus 2.7 mg/dL (2.5-4.9)
[2019-02-13] MEDS: INSULIN -REGULAR HUMAN 50 UNIT/0.5 ML ML SQ SCH ×4 (07:30→21:00)
[2019-02-13] MEDS: ASPIRIN EC 81 MG TAB PO SCH (08:47)
[2019-02-13] MEDS: AMLODIPINE 5 MG TAB PO SCH (08:47)
[2019-02-13] MEDS: CARVEDILOL 25 MG TAB PO SCH ×2 (08:47→21:11)
[2019-02-13] MEDS: CIPROFLOXACIN 400mg IV 400 MG/200 ML BAG IV SCH (16:13)
[2019-02-13] MEDS: ATORVASTATIN 10 MG TAB PO SCH (21:10)
[2019-02-13] MEDS: FAMOTIDINE 20 MG/2 ML VIAL IV SCH (21:11)
--- NOTE | 2019-02-13 23:54 | PN ---
Date of Progress Note: 02/13/2019 Chief Complaint: Acute on chronic kidney injury. Subjective: The patient was found to have abnormal kidney function test on arrival. She has a histo ry of chronic kidney disease stage 3. Baseline creatinine back in August was 1.5. The patient has nonoliguric urine output. She denies new complaints. She denies PND, orthopnea. Physical Examination: Lungs: Clear to auscultation bilaterally. Heart: S1, S2. Abdomen: Soft, benign. Extremities: Slight edema. Impression And Plan: 1.Acute on chronic kidney injury secondary to prerenal azotemia. The patient will continue IV fluid s for hydration. Avoid nonsteroidal anti-inflammatory medication. Monitor electrolytes and kidney f unction with renal panel. 2.Hypertension, blood pressure controlled. 3.Hypertension is in good control. Continue low-sodium diet. GABE inhibitor on hold because of acut e kidney injury. 4.The patient is complaining of generalized weakness, fatigue. The patient was started on IV fluids for acute kidney injury. Monitor fluid balance and urine output. 5.Sepsis. Leukocytosis is severely elevated. It is improving with antibiotics. Adjust antibiotics to renal function. The patient had diarrhea and workup is pending for C. diff colitis. Preliminary blood culture showed no growth. Urine culture is pending and preliminary report is positive for uri nary tract infection. 6.The patient is a 73-year-old woman, who presented to emergency room, was brought by EMS because of flu-like symptoms. CT scan was done without contrast did not show any acute changes in the abdomen. There is no obstructive uropathy and no kidney stones. The patient will continue antibiotics for u rinary tract infection, for acute kidney injury on chronic kidney disease. The patient will continue IV fluids. Monitor flu id balance. EB/MODL Voice ID: [id number] Report ID: [id number]
[2019-02-14] MEDS: METRONIDAZOLE 500mg IVPB 500 MG/100 ML BAG IV SCH (05:23)
[2019-02-14] MEDS: INSULIN -REGULAR HUMAN 50 UNIT/0.5 ML ML SQ SCH ×4 (07:30→21:10)
[2019-02-14] MEDS ORDERED: POTASSIUM 25 MEQ EFFERV TAB PO ONE (08:25)
[2019-02-14] MEDS: AMLODIPINE 5 MG TAB PO SCH (09:28)
[2019-02-14] MEDS: ASPIRIN EC 81 MG TAB PO SCH (09:29)
[2019-02-14] MEDS: CARVEDILOL 25 MG TAB PO SCH ×2 (09:29→21:10)
[2019-02-14] MEDS: ACETAMINOPHEN 500 MG TAB PO PRN (09:30)
[2019-02-14] MEDS: CIPROFLOXACIN 400mg IV 400 MG/200 ML BAG IV SCH (09:31)
[2019-02-14] MEDS: NA CHLORIDE 0.9% 1,000 ML IV SCH ×2 (10:05→13:29)
[2019-02-14] MEDS ORDERED: INFLUENZA VACCINE (for 3y+) 0.5 ML DOSE IMVAC ONE (13:00)
[2019-02-14] MEDS ORDERED: PNEUMOCOCCAL VACCINE 0.5 ML IMVAC ONE (13:00)
--- NOTE | 2019-02-14 13:34 | PN ---
Date of Progress Note: 02/13/2019 The patient still has mild abdominal pain. She had a fever of 100; however, generally she is doing b echo. The patient had urine colony count suggestive of contamination with mixed misty. The patient was continued on the same antibiotics. NILESH/PENG Voice ID: [id number] Report ID: [id number]
[2019-02-14] MEDS: ONDANSETRON 4 MG/2 ML VIAL IV PRN (17:33)
--- NOTE | 2019-02-14 18:39 | P.PN ---
Subjective Date of Service: 02/14/19 Chief Complaint: Diarrhea, weakness Subjective: Improving (Feels better with more energy. WBC down from 25K to 16.9K. No diarrhe now; she reports firm stool today.) Review of Systems 10-point ROS is otherwise unremarkable General: Weakness (Improved. ) Physical Examination - Vital Signs Temperature: 98.8 F Blood Pressure: 136/65 Pulse: 80 Respirations: 20 Pulse Ox (%): 92 - Physical Exam General: Alert, In no apparent distress, Oriented x3, Cooperative HEENT: Atraumatic, Normocephalic, PERRLA, EOMI Neck: Supple Respiratory: Normal air movement Cardiovascular: Normal pulses Gastrointestinal: Soft and benign, No tenderness, No rebound, No guarding Neurological: Normal speech, Normal strength at 5/5 x4 extr - Studies Microbiology Data (last 24 hrs): 02/11/19 19:15 Clean Catch Urine Byron Count - Final BETWEEN 10,000 & 100,000 CFU/ML 02/11/19 19:15 Clean Catch Urine - Final Enterobacter Aerogenes 02/11/19 17:00 Blood - Blood Aerobic Blood Culture - Final Klebsiella Pneumoniae 02/11/19 17:00 Blood - Blood Gram Stain - Final 02/11/19 17:00 Blood - Blood Anaerobic Blood Culture - Final Klebsiella Pneumoniae 02/11/19 17:00 Blood - Blood Gram Stain - Final 02/11/19 17:15 Blood - Blood Aerobic Blood Culture - Final Klebsiella Pneumoniae 02/11/19 17:15 Blood - Blood Gram Stain - Final 02/11/19 17:15 Blood - Blood Anaerobic Blood Culture - Final Klebsiella Pneumoniae 02/11/19 17:15 Blood - Blood Gram Stain - Final Assessment And Plan - Current Problems (Diagnosis) (1) UTI (urinary tract infection) Current Visit: Yes Status: Acute Comment: Improved on antibiotics. (2) Sepsis Current Visit: Yes Status: Acute Comment: Improved on antibiotics. (3) Diarrhea Current Visit: Yes Status: Acute Comment: Resolved. (4) Renal failure (ARF), acute on chronic Current Visit: Yes Status: Acute (5) Diabetes Current Visit: Yes Status: Acute - Plan REC: 1) continue antibiotic therapy 2) po renal diet
--- NOTE | 2019-02-14 21:04 | PN ---
Subjective: The patient is doing much better. She has abdominal cramp, but no diarrhea or vomiting. She is tolerating the diet. The patient has negative C difficile. The patient's CBC will be repea marco tomorrow to see whether it is back to normal. There is culture of Klebsiella pneumoniae in the b lood. This is sensitive to Cipro. The patient will be continued on Cipro. NILESH/PENG Voice ID: [id number] Report ID: [id number]
[2019-02-14] MEDS: ATORVASTATIN 10 MG TAB PO SCH (21:10)
--- NOTE | 2019-02-15 01:25 | PN ---
Date of Progress Note: 02/14/2019 Subjective: The patient was admitted and diarrhea. The patient was found to have diverti culosis. The patient also was found to have BRENNA with peak creatinine of 3.4, leukocytosis of 25,000. Today, the patient's symptoms improved. No more diarrhea, tolerating diet. Creatinine down to 2.8 , potassium 3.2, we will replace . Objective: Vital Signs: Blood pressure 169/73, pulse rate 77, temperature 99.9. General: Awake, alert, oriented x3, not in distress. Heart: Regular rate and rhythm. Normal S1, S2. Chest: Clear to auscultation bilaterally. No rubs or wheezes. Abdomen: Soft and nontender. Positive bowel sounds. Extremities: No edema. Laboratory Data: No available labs for today. Assessment And Plan: 1.Acute kidney injury likely due to prerenal azotemia. Abdominal CT protein +1, no rbc' s, improved on IV fluids. Creatinine less than 2.5, right now today is 2.88. 2.Hypertension. We will continue monitor. We will reduce IV fluid rate and consider increasing aml odipine and blood pressure is still to be on the high side. 3.Urinary tract infection. Continue Cipro. 4.Diarrhea, improved. 5.Clostridium difficile negative. BOBBY/PENG Voice ID: [id number] Report ID: [id number]
[2019-02-15] MEDS: NA CHLORIDE 0.9% 1,000 ML IV SCH (03:43)
[2019-02-15] MEDS: CIPROFLOXACIN 400mg IV 400 MG/200 ML BAG IV SCH (03:43)
[2019-02-15] MEDS: INSULIN -REGULAR HUMAN 50 UNIT/0.5 ML ML SQ SCH ×3 (07:30→16:35)
[2019-02-15] MEDS: AMLODIPINE 5 MG TAB PO SCH (09:31)
[2019-02-15] MEDS: CARVEDILOL 25 MG TAB PO SCH (09:31)
[2019-02-15] MEDS: ASPIRIN EC 81 MG TAB PO SCH (09:31)
[2019-02-15 09:44] VITALS: O2SAT 95
[2019-02-15 09:47] LABS: Absolute Lymphocytes (CBC) 1.8 K/uL (0.7-4.9); Absolute Neutrophil 7.7 K/uL (1.8-8.0); Eosinophils % 1.6 % (0-4.4); Hematocrit 29.3 % (36.0-45.0); Lymphocytes % 16.8 % (15.3-44.8); MPV 7.6 fL (7.6-11.3); RBC Red Blood Cell Count 3.39 M/uL (3.86-4.86)
[2019-02-15 16:24] VITALS: BP 138/69; TEMP 98.9
--- NOTE | 2019-02-18 08:29 | PN ---
Date of Progress Note: 02/15/2019 Subjective: The patient was admitted for nausea and diarrhea. The patient was found to have diverti culosis with BRENNA with peak creatinine of 3.4 and white count of 25,000. The patient was started on I V fluids and creatinine significant went down to 2.8. Today, the patient states she feels well. No nausea, vomiting, or diarrhea. White count is down to 10.8. No chemistries done today. Objective: Vital Signs: Temperature 99.1, pulse of 73, blood pressure 156/74. General: Awake, alert, oriented x3, not in distress. Heart: Regular rate and rhythm. Normal S1, S2. Chest: Clear to auscultation bilaterally. No rubs or wheezes. Abdomen: Soft and nontender. Extremities: No edema. Laboratory Data: White count 10.8, hemoglobin of 10, platelet 276. Medications: Include , aspirin 81, Lipitor, , ciprofloxacin, morphine, and IV fl uids. Assessment And Plan: 1.Acute kidney injury likely due to dehydration and prerenal azotemia. Continue IV fluids. ___. 2.Hypertension. Blood pressure has been acceptable now. 3. Klebsiella pneumoniae Cipro. . Negative for Clostridium difficil e. Continue to monitor. ZOHRA Voice ID: [id number] Report ID: [id number]
== END 2019-02-15 17:55 | disposition home or self-care (01) | DRG 872 ==
LOC: ER 16:23 → 4TH 21:33 → OBSVTOIN 02-15 09:00
PROVIDERS: ADMIT Internal Medicine; ATTEND Internal Medicine
DX: A41.9 Sepsis, unspecified organism (principal); N17.9 Acute kidney failure, unspecified; N39.0 Urinary tract infection, site not specified; I12.9 Hypertensive chronic kidney disease with stage 1 through stage 4 chronic kidney disease, or unspecified chronic kidney disease; E11.22 Type 2 diabetes mellitus with diabetic chronic kidney disease; N18.3 Chronic kidney disease, stage 3 (moderate); Z79.84 Long term (current) use of oral hypoglycemic drugs; R80.9 Proteinuria, unspecified; R79.89 Other specified abnormal findings of blood chemistry; B96.1 Klebsiella pneumoniae [K. pneumoniae] as the cause of diseases classified elsewhere; K57.90 Diverticulosis of intestine, part unspecified, without perforation or abscess without bleeding; R19.7 Diarrhea, unspecified; E86.0 Dehydration
CPT/HCPCS: 36415; 71045; 74176; 80048; 80076; 81003; 81015; 82550; 82553; 82962; 83605; 83690; 83735; 83880; 84100; 84132; 84145; 84484; 85025; 85610; 85730; 87040; 87045; 87046; 87077; 87086; 87088; 87177; 87186; 87205; 87209; 87493; 87804; 93005; 96365; 96366; 96375; 99285; G0378; J0696; J0744; J2405; J7030

== ENCOUNTER 2019-06-12 18:50 | Emergency (ER) | payer OTHER ==
[2019-06-12 19:43] LABS: Absolute Lymphocytes (CBC) 1.1 K/uL (0.7-4.9); Basophils % 0.4 % (0-1.3); Hematocrit 32.8 % (36.0-45.0); Lymphocytes % 13.5 % (15.3-44.8); MPV 8.9 fL (7.6-11.3); Protime INR 1.01; RBC Red Blood Cell Count 3.78 M/uL (3.86-4.86)
[2019-06-12] MEDS ORDERED: PANTOPRAZOLE 40 MG INJ ONE (19:48)
[2019-06-12] MEDS ORDERED: ONDANSETRON 4 MG/2 ML VIAL ONE (19:48)
[2019-06-12] MEDS ORDERED: NA CHLORIDE 0.9% 0 ML ONE (19:49)
[2019-06-12] MEDS ORDERED: NA CHLORIDE 0.9% 1,000 ML ONE (19:51)
[2019-06-12 19:56] LABS: ALT/SGPT 31 U/L (12-78); AST/SGOT 35 U/L (15-37); Albumin 2.6 g/dL (3.4-5.0); Alkaline Phosphatase 107 U/L (45-117); BUN Blood Urea Nitrogen 41 mg/dL (7-18); Bicarbonate 21 mmol/L (21-32); Bilirubin Direct 0.2 mg/dL (0-0.2); Bilirubin Total 0.4 mg/dL (0.2-1.0); Glucose Level 165 mg/dL (74-106); Lipase 256 U/L (73-393); Magnesium 2.3 mg/dL (1.8-2.4); NT PRO-BNP 2131 pg/mL (<450); Potassium 3.3 mmol/L (3.5-5.1); Protein, Total 7.4 g/dL (6.4-8.2); Sodium Level 135 mmol/L (136-145); Troponin (Emerg Dept Use Only) < 0.02 ng/mL (0.0-0.045)
--- NOTE | 2019-06-12 20:00 | RAD REPORT ---
EXAM DESCRIPTION: RAD - Chest Single View - 06/12/2019 7:54 pm CLINICAL HISTORY: upper abdomen pain Chest pain. COMPARISON: CT HEAD CSPINE MPR WO CONTRAST dated 09/03/2014MRI BRAIN WITHOUT CONTRAST dated 2Chest Single View dated 02/12/2019; Chest Single View dated 02/11/2019; Chest Single View dated 017; Chest Single View dated 02/17/2016 FINDINGS: Portable technique limits examination quality. The lungs are grossly clear. The heart is upper limit of normal in size. No displaced fractures. IMPRESSION: No acute intrathoracic process suspected.
--- NOTE | 2019-06-12 20:38 | RAD REPORT ---
EXAM DESCRIPTION: CT - Abdomen Pelvis Wo Contrast - 06/12/2019 8:25 pm CLINICAL HISTORY: Abdominal pain. N/V;Abd pain COMPARISON: Abdomen Pelvis Wo Contrast dated 02/11/2019 TECHNIQUE: CT imaging of the abdomen and pelvis was performed without contrast. Solid organ, bowel a nd vascular assessment is limited due to lack of IV and oral contrast. All CT scans are performed using dose optimization technique as appropriate and may include automated exposure control or mA/KV adjustment according to patient size. FINDINGS: Linear opacities are present in both lung bases likely representing subsegmental atelectas is.Small hiatal hernia is present. The liver is mildly prominent in size with subtle nodular contour which could indicate mild cirrhosis . Cholecystectomy clips are present. The spleen, pancreas, right adrenal gland and kidneys are within normal limits. 20 mm cyst is present superior right kidney. No stone or hydronephrosis present. 20 m m left adrenal mass is present, likely representing an adenoma. No bowel obstruction, free air, free fluid or abscess. Sigmoid diverticulosis coli is present without diverticulitis. The appendix is normal. Small fat containing umbilical hernia. Diffuse osteopenia is seen. No fracture is evident. IMPRESSION: No acute intra-abdominal or pelvic findings. Mild findings liver cirrhosis suspected. Sigmoid diverticulosis coli without diverticulitis. Stable left adrenal mass. A limited non-contrast examination was performed as detailed.
[2019-06-12] MEDS ORDERED: POTASSIUM 25 MEQ EFFERV TAB ONE (21:18)
[2019-06-12 22:16] LABS: Urine Bacteria <20 /HPF (<20); Urine Culture Reflex Order NOT NEEDED; Urine RBC NONE SEEN /HPF (NONE SEEN)
--- NOTE | 2019-06-12 22:21 | ER ---
Nurse's Notes [facility] Name: Jai Roman Age: 74 yrs Sex: Female : 1945 Arrival Date: 06/12/2019 Time: 18:51 Bed 16 Private MD: Diagnosis: Nausea and vomiting;Chronic kidney disease, unspecified Presentation: 06/12 18:51 Presenting complaint: Patient states: Nausea and Vomiting that started this morning, sg worsening today, pt reports having upper quadrant abdominal pain. Transition of care: patient was not received from another setting of care. Onset of symptoms was June 12, 2019. Risk Assessment: Do you want to hurt yourself or someone else? Patient reports no desire to harm self or others. Initial Sepsis Screen: Does the patient meet any 2 criteria? No. Patient's initial sepsis screen is negative. Does the patient have a suspected source of infection? No. Patient's initial sepsis screen is negative. Care prior to arrival: None. 18:51 Method Of Arrival: EMS: [facility] 18:51 Acuity: ADALBERTO 3 sg Historical: - Allergies: 18:54 NKA; sg - Home Meds: 18:54 amlodipine 10 mg tab 1 tab once daily [Active]; carvedilol 25 mg Oral tab 1 tab 2 times sg per day [Active]; glimepiride 1 mg Oral tab twice a day [Active]; lisinopril 20 mg Oral tab 2 tabs once daily [Active]; metformin 1,000 mg Oral tab 1 tab 2 times per day [Active]; omeprazole 40 mg Oral cpDR 1 cap once daily [Active]; pravastatin 20 mg Oral tab 1 tab once daily [Active]; - PMHx: 18:54 Diabetes - NIDDM; High Cholesterol; Hypertension; sg - Immunization history:: Adult Immunizations not up to date. - Social history:: Smoking status: Patient/guardian denies using tobacco. - Ebola Screening: : Patient negative for fever greater than or equal to 101.5 degrees Fahrenheit, and additional compatible Ebola Virus Disease symptoms Patient denies exposure to infectious person Patient denies travel to an Ebola-affected area in the 21 days before illness onset No symptoms or risks identified at this time. Screenin:59 Abuse screen: Denies threats or abuse. Nutritional screening: No deficits noted. tw2 Tuberculosis screening: No symptoms or risk factors identified. Fall Risk Secondary diagnosis (15 points) impaired mobility. Assessment: 19:08 General: Appears in no apparent distress. comfortable, Behavior is calm, cooperative, jb4 appropriate for age. Pain: Denies pain. Neuro: Level of Consciousness is awake, alert, obeys commands, Oriented to person, place, time, situation. Cardiovascular: Patient's skin is warm and dry. Respiratory: Airway is patent Respiratory effort is even, unlabored, Respiratory pattern is regular, symmetrical. GI: Abdomen is non-distended, obese, Bowel sounds present X 4 quads. Abd is soft X 4 quads Abd is non tender in right upper quadrant, left upper quadrant and left lower quadrant Abdomen is tender to palpation in suprapubic area and right lower quadrant Reports nausea, vomiting. : No signs and/or symptoms were reported regarding the genitourinary system. EENT: No signs and/or symptoms were reported regarding the EENT system. Derm: Skin is intact, Skin is pink, warm \T\ dry. Musculoskeletal: Circulation, motion, and sensation intact. 20:38 Reassessment: Patient appears in no apparent distress at this time. Patient and/or jb4 family updated on plan of care and expected duration. Pain level reassessed. Patient is alert, oriented x 3, equal unlabored respirations, skin warm/dry/pink. 21:30 Reassessment: Patient appears in no apparent distress at this time. Patient and/or jb4 family updated on plan of care and expected duration. Pain level reassessed. Patient is alert, oriented x 3, equal unlabored respirations, skin warm/dry/pink. 22:40 Reassessment: Patient appears in no apparent distress at this time. Patient and/or jb4 family updated on plan of care and expected duration. Pain level reassessed. Patient is alert, oriented x 3, equal unlabored respirations, skin warm/dry/pink. Pt reports increased nausea, provider notified, see MAR for orders. Pt and son verbalized understanding of d/c and follow up instructions, assisted to vehicle via wheelchair. Vital Signs: 19:08 BP 161 / 68; Pulse 74; Resp 20; Temp 99.4(O); Pulse Ox 100% on R/A; Weight 68.04 kg; jb4 Height 4 ft. 6 in. (137.16 cm); Pain 0/10; 20:30 BP 161 / 68; Pulse 68; Resp 21; Pulse Ox 98% on R/A; jb4 21:45 BP 169 / 85; Pulse 77; Resp 20; Pulse Ox 99% on R/A; jb4 19:08 Body Mass Index 36.17 (68.04 kg, 137.16 cm) jb4 ED Course: 18:51 Patient arrived in ED. sg 18:51 Arm band placed on. sg 18:51 Bed in low position. Call light in reach. tw2 18:53 Triage completed. sg 18:55 Inserted saline lock: 20 gauge in right antecubital area, using aseptic technique. tw2 Blood collected. 18:58 Martín Baum PA is PHCP. cp 18:58 Eddie Sheikh MD is Attending Physician. cp 19:01 Stan Aguiar RN is Primary Nurse. jb4 19:54 XRAY Chest (1 view) In Process Unspecified. EDMS 20:08 Martín Mccain MD is Attending Physician. cp 20:24 CT completed. Patient tolerated procedure well. Patient moved to CT. Patient moved back nj from CT. 20:26 CT Abd/Pelvis - Without Contrast In Process Unspecified. EDMS 22:50 No provider procedures requiring assistance completed. IV discontinued, intact, jb4 bleeding controlled, No redness/swelling at site. Pressure dressing applied. Administered Medications: 19:45 Drug: ProTONIX 40 mg Route: IVP; Site: right antecubital; jb4 22:15 Follow up: Response: No adverse reaction jb4 19:46 Drug: Zofran 4 mg Route: IVP; Site: right antecubital; jb4 20:15 Follow up: Response: No adverse reaction; Nausea is decreased jb4 19:48 Drug: NS 0.9% 500 ml Route: IV; Rate: 250 ml/hr; Site: right antecubital; jb4 21:35 Follow up: Response: No adverse reaction; IV Status: Completed infusion; IV Intake: jb4 500ml 21:05 Drug: Potassium Effervescent Tablet 50 mEq Route: PO; jb4 21:30 Follow up: Response: No adverse reaction jb4 22:16 Not Given (Physician Discretion): NS 0.9% 500 ml IV at 100 ml/hr once jb4 22:52 Drug: Zofran 4 mg Route: PO; jb4 22:52 Follow up: Response: Medication administered at discharge. jb4 Intake: 21:35 IV: 500ml; Total: 500ml. jb4 Outcome: 22:20 Discharge ordered by . cp 22:50 Discharged to home ambulatory, via wheelchair, with family. jb4 22:50 Condition: stable 22:50 Discharge instructions given to patient, family, Instructed on discharge instructions, follow up and referral plans. medication usage, Demonstrated understanding of instructions, follow-up care, medications, Prescriptions given X 1. 22:53 Patient left the ED. jb4 Signatures: Dispatcher [employer] EDMS Jimenez Rosenberg RN RN Martín Roe PA PA cp Wise, Tara RN RN tw2 Stan Aguiar RN RN jb4 Jose Alfredo Macias
--- NOTE | 2019-06-12 22:21 | EDPHYS ---
Physician Documentation [facility] Name: Jai Roman Age: 74 yrs Sex: Female : 1945 Arrival Date: 06/12/2019 Time: 18:51 Bed 16 Private MD: ED Physician Martín Mccain HPI: 06/12 19:25 This 74 yrs old Female presents to ER via EMS with complaints of cp Nausea/Vomiting. 19:25 The patient presents to the emergency department with nausea, with "dry heaves", cp vomiting, that is intermittent. 19:25 Onset: The symptoms/episode began/occurred over last several days, became worse this cp morning after returning home. 19:25 Possible causes: unknown. Associated signs and symptoms: Pertinent positives: abdominal cp pain, anorexia, Pertinent negatives: constipation, diarrhea, dysuria, fever, GI bleeding. Severity of symptoms: in the emergency department the symptoms are unchanged despite home interventions. Historical: - Allergies: 18:54 NKA; sg - Home Meds: 18:54 amlodipine 10 mg tab 1 tab once daily [Active]; carvedilol 25 mg Oral tab 1 tab 2 times sg per day [Active]; glimepiride 1 mg Oral tab twice a day [Active]; lisinopril 20 mg Oral tab 2 tabs once daily [Active]; metformin 1,000 mg Oral tab 1 tab 2 times per day [Active]; omeprazole 40 mg Oral cpDR 1 cap once daily [Active]; pravastatin 20 mg Oral tab 1 tab once daily [Active]; - PMHx: 18:54 Diabetes - NIDDM; High Cholesterol; Hypertension; sg - Immunization history:: Adult Immunizations not up to date. - Social history:: Smoking status: Patient/guardian denies using tobacco. - Ebola Screening: : Patient negative for fever greater than or equal to 101.5 degrees Fahrenheit, and additional compatible Ebola Virus Disease symptoms Patient denies exposure to infectious person Patient denies travel to an Ebola-affected area in the 21 days before illness onset No symptoms or risks identified at this time. ROS: 19:30 Constitutional: Positive for poor PO intake, Negative for body aches, chills, fever. cp 19:30 Eyes: Negative for injury, pain, redness, and discharge. cp 19:30 ENT: Negative for drainage from ear(s), ear pain, sore throat, difficulty swallowing, difficulty handling secretions. 19:30 Cardiovascular: Negative for chest pain, edema, palpitations. 19:30 Respiratory: Negative for cough, shortness of breath, wheezing. 19:30 Abdomen/GI: Positive for abdominal pain, nausea, vomiting, Negative for diarrhea, constipation, hematemesis, black/tarry stool, rectal bleeding. 19:30 Back: Negative for pain at rest, pain with movement. 19:30 : Negative for urinary symptoms. 19:30 Neuro: Positive for weakness, Negative for altered mental status, dizziness, headache. 19:30 All other systems are negative. Exam: 19:40 Constitutional: The patient appears in no acute distress, alert, awake, cp non-diaphoretic, non-toxic, well developed, well nourished. 19:40 Head/Face: Normocephalic, atraumatic. cp 19:40 Eyes: Periorbital structures: appear normal, Conjunctiva: normal, no exudate, no injection, Sclera: no appreciated abnormality, Lids and lashes: appear normal, bilaterally. 19:40 ENT: External ear(s): are unremarkable, Nose: is normal, Mouth: is normal, Posterior pharynx: is normal, airway is patent, no erythema, no exudate. 19:40 Neck: ROM/movement: is normal, is supple, without pain, no range of motions limitations, no nuchal rigidity. 19:40 Chest/axilla: Inspection: normal, Palpation: is normal, no crepitus, no tenderness. 19:40 Cardiovascular: Rate: normal, Rhythm: regular, Edema: is not appreciated, JVD: is not appreciated. 19:40 Respiratory: the patient does not display signs of respiratory distress, Respirations: normal, no use of accessory muscles, no retractions, no splinting, no tachypnea, labored breathing, is not present, Breath sounds: are clear throughout, no decreased breath sounds, no stridor, no wheezing. 19:40 Abdomen/GI: Inspection: abdomen appears normal, Bowel sounds: active, all quadrants, Palpation: soft, in all quadrants, mild abdominal tenderness, in the epigastric area and right upper quadrant, rebound tenderness, is not appreciated, voluntary guarding, is not appreciated, involuntary guarding, is not appreciated. 19:40 Back: pain, is absent, ROM is normal. 19:40 Skin: no rash present. 19:40 Neuro: Orientation: to person, place \\T\\ time. Mentation: is normal, Motor: moves all fours, general weakness w/o focal deficits. 19:45 ECG was reviewed by the Attending Physician. cp Vital Signs: 19:08 BP 161 / 68; Pulse 74; Resp 20; Temp 99.4(O); Pulse Ox 100% on R/A; Weight 68.04 kg; jb4 Height 4 ft. 6 in. (137.16 cm); Pain 0/10; 20:30 BP 161 / 68; Pulse 68; Resp 21; Pulse Ox 98% on R/A; jb4 21:45 BP 169 / 85; Pulse 77; Resp 20; Pulse Ox 99% on R/A; jb4 19:08 Body Mass Index 36.17 (68.04 kg, 137.16 cm) jb4 MDM: 19:02 Patient medically screened. cp 19:30 Differential diagnosis: gastritis, pancreatitis, diverticulitis, viral gastroenteritis, cp gastroenteritis. 22:20 Data reviewed: vital signs, nurses notes, lab test result(s), EKG, radiologic studies, cp CT scan, plain films. 22:20 Test interpretation: by ED physician or midlevel provider: ECG, plain radiologic cp studies. Counseling: I had a detailed discussion with the patient and/or guardian regarding: the historical points, exam findings, and any diagnostic results supporting the discharge/admit diagnosis, lab results, radiology results, to return to the emergency department if symptoms worsen or persist or if there are any questions or concerns that arise at home. Response to treatment: the patient's symptoms have markedly improved after treatment, VSS. Nausea and pain improved and vomiting resolved. Will discharge to home for continued monitoring. 06/12 19: Order name: Basic Metabolic Panel; Complete Time: 20:05 cp 06/12 20:24 Interpretation: Normal except: NA 135; K 3.3; GLUC 165; BUN 41; CRE 3.48; GFR 13; CA cp 7.8. 06/12 19: Order name: CBC with Diff; Complete Time: 20:24 cp 06/12 20:24 Interpretation: RBC 3.78; HGB 11.3; HCT 32.8; MARIAM% 75.1; LYM% 13.5. cp 19:22 Order name: LFT's; Complete Time: 20:05 cp 06/12 19:22 Order name: Magnesium; Complete Time: 20:05 cp 06/12 19:22 Order name: NT PRO-BNP; Complete Time: 20:05 cp 06/12 19:22 Order name: PT-INR; Complete Time: 20:05 cp 06/12 19:22 Order name: Troponin (emerg Dept Use Only); Complete Time: 20:05 cp 06/12 19:22 Order name: XRAY Chest (1 view); Complete Time: 20:05 cp 06/12 19:22 Order name: Lipase; Complete Time: 20:05 cp 06/12 20:06 Order name: CT Abd/Pelvis - Without Contrast; Complete Time: 20:40 cp 06/12 20:26 Order name: Urine Microscopic Only; Complete Time: 22:19 cp 06/12 19:22 Order name: EKG; Complete Time: 19:25 cp 06/12 19:22 Order name: Cardiac monitoring; Complete Time: 20:07 cp 06/12 19:22 Order name: EKG - Nurse/Tech; Complete Time: 20:07 cp 06/12 19:22 Order name: IV Saline Lock; Complete Time: 19:28 cp 06/12 19:22 Order name: Labs collected and sent; Complete Time: 19:28 cp 06/12 19:22 Order name: O2 Per Protocol; Complete Time: 19:28 cp 06/12 19:22 Order name: O2 Sat Monitoring; Complete Time: 19:28 cp 06/12 20:26 Order name: Urine Dipstick-Ancillary (obtain specimen); Complete Time: 21:48 cp 06/12 20:42 Order name: PO challenge; Complete Time: 21:06 cp EC:45 Rate is 74 beats/min. Rhythm is regular. ID interval is normal. QRS interval is normal. cp QT interval is normal. T waves are Inverted in leads I, aVL. Interpreted by me. Reviewed by me. Administered Medications: 19:45 Drug: ProTONIX 40 mg Route: IVP; Site: right antecubital; jb4 22:15 Follow up: Response: No adverse reaction jb4 19:46 Drug: Zofran 4 mg Route: IVP; Site: right antecubital; jb4 20:15 Follow up: Response: No adverse reaction; Nausea is decreased jb4 19:48 Drug: NS 0.9% 500 ml Route: IV; Rate: 250 ml/hr; Site: right antecubital; jb4 21:35 Follow up: Response: No adverse reaction; IV Status: Completed infusion; IV Intake: jb4 500ml 21:05 Drug: Potassium Effervescent Tablet 50 mEq Route: PO; jb4 21:30 Follow up: Response: No adverse reaction jb4 22:16 Not Given (Physician Discretion): NS 0.9% 500 ml IV at 100 ml/hr once jb4 22:52 Drug: Zofran 4 mg Route: PO; jb4 22:52 Follow up: Response: Medication administered at discharge. jb4 Disposition: 06/12/19 22:20 Discharged to Home. Impression: Nausea and vomiting, Chronic kidney disease, unspecified. - Condition is Stable. - Discharge Instructions: Dehydration, Adult, Nausea and Vomiting, Adult, Chronic Kidney Disease, Adult. - Prescriptions for Zofran 4 mg Oral Tablet - take 1 tablet by ORAL route every 12 hours As needed; 20 tablet. - Medication Reconciliation Form, Thank You Letter, Antibiotic Education, Prescription Opioid Use form. - Follow up: Private Physician; When: 1 - 2 days; Reason: Recheck today's complaints. - Problem is new. - Symptoms have improved. Addendum: 06/14/2019 07:05 Co-signature as Attending Physician, Martín Mccain MD I agree with the assessment and c gaitan plan of care. Signatures: Dispatcher [employer] EDJimenez Sepulveda RN RN sg Anderson, Corey, MD MD cha Page, Corey, PA PA cp Bryson, James, RN RN jb4 Corrections: (The following items were deleted from the chart) 06/12 20:24 20:24 Normal except: NA 135; K 3.3; GLUC 165; BUN 41; CRE 3.48; GFR 13. cp cp 22:53 22:20 06/12/2019 22:20 Discharged to Home. Impression: Nausea and vomiting; Chronic jb4 kidney disease, unspecified. Condition is Stable. Forms are Medication Reconciliation Form, Thank You Letter, Antibiotic Education, Prescription Opioid Use. Follow up: Private Physician; When: 1 - 2 days; Reason: Recheck today's complaints. Problem is new. Symptoms have improved. cp
[2019-06-12 23:02] VITALS: TEMP 99.4
[2019-06-12 23:04] VITALS: BP 169/85; O2SAT 99
[2019-06-12] MEDS ORDERED: ONDANSETRON 4 MG (ODT) TAB ONE (23:07)
--- NOTE | 2019-06-13 11:23 | EKG ---
Test Date: 2019-06-12 Test Time: 19:32:59 Desk Attendant: NOEMI MEASUREMENT RESULTS: Intervals: Rate: 74 MD: 164 QRSD: 80 QT: 386 QTc: 428 [place]: P: 19 MD: 164 QRS: -16 T: 132 INTERPRETIVE STATEMENTS: Normal sinus rhythm Possible Anterior infarct, age undetermined T wave abnormality, consider lateral ischemia Abnormal ECG Compared to ECG 02/12/2019 07:46:04 Myocardial infarct finding now present T-wave abnormality now present Possible ischemia now present Electronically Signed On 06-13-19 11:21:12 CDT by Gunner Valencia
== END 2019-06-12 22:53 | disposition home or self-care (01) ==
LOC: ER 18:50
DX: I12.9 Hypertensive chronic kidney disease with stage 1 through stage 4 chronic kidney disease, or unspecified chronic kidney disease (principal); E11.22 Type 2 diabetes mellitus with diabetic chronic kidney disease; N18.9 Chronic kidney disease, unspecified; E78.00 Pure hypercholesterolemia, unspecified
CPT/HCPCS: 96361; 93005; 85025; 80048; 36415; 83735; 85610; 80076; 81015; 84484; 83690; 83880; 74176; 71045; 96375; 96374; 99284; C9113; J7030; J2405

== ENCOUNTER 2019-06-13 16:39 | Inpatient (IN) | payer OTHER ==
[2019-06-13] MEDS ORDERED: NA CHLORIDE 0.9% 500 ML ONE (17:51)
[2019-06-13 17:53] LABS: Absolute Lymphocytes (CBC) 1.3 K/uL (0.7-4.9); Basophils % 0.1 % (0-1.3); Hematocrit 29.6 % (36.0-45.0); Lymphocytes % 7.1 % (15.3-44.8); MPV 8.1 fL (7.6-11.3); RBC Red Blood Cell Count 3.42 M/uL (3.86-4.86)
[2019-06-13 18:07] LABS: Albumin 2.5 g/dL (3.4-5.0); Bilirubin Direct 0.1 mg/dL (0-0.2); Bilirubin Total 0.4 mg/dL (0.2-1.0); Potassium 3.8 mmol/L (3.5-5.1); Protein, Total 6.9 g/dL (6.4-8.2)
[2019-06-13 18:55] LABS: Urine Bacteria 20-50 /HPF (<20); Urine Culture Reflex Order REFLEXED; Urine RBC NONE SEEN /HPF (NONE SEEN)
[2019-06-13 18:58] LABS: Urine Blood TRACE (NEG); Urine Glucose NEGATIVE (NEG); Urine Protein 3+ (NEG)
[2019-06-13 19:33] LABS: Blood Morphology Comment NOT SEEN (NOT SEEN); Platelet Estimate ADEQ; Urine White Blood Cell Casts OK
[2019-06-13] MEDS ORDERED: CEFTRIAXONE/SWI 1gm 1 GM/10 ML SYR ONE (19:40)
--- NOTE | 2019-06-13 20:23 | RAD REPORT ---
EXAM DESCRIPTION: CT - Head Brain Wo Cont - 06/13/2019 8:07 pm CLINICAL HISTORY: Alteration of awareness/confusion COMPARISON: 2010 TECHNIQUE: Computed axial tomography of the head was obtained. IV contrast was not requested. All CT scans are performed using dose optimization technique as appropriate and may include automated exposure control or mA/KV adjustment according to patient size. FINDINGS:2 An intracranial bleed is not seen . The ventricles are normal in caliber. No extra-axial fluid collection is noted. Mild to moderate low-density areas within periventricular, deep and subcortical white matter likely r epresent ischemic changes secondary to small vessel disease. Fluid within the sinuses/ mastoids is not seen. IMPRESSION: No acute intracranial abnormality is seen. If patient's symptoms persist MRI of the bra in would be recommended.
--- NOTE | 2019-06-13 20:32 | EDPHYS ---
Physician Documentation [facility] Name: Jai Roman Age: 74 yrs Sex: Female : 1945 Arrival Date: 06/13/2019 Time: 16:41 Bed 19 Private MD: ED Physician Timoteo Palacios HPI: 06/13 17:36 This 74 yrs old Female presents to ER via Ambulatory with complaints of pm1 Nausea/Vomiting. 17:36 The patient presents to the emergency department with nausea, vomiting, abdominal pain, pm1 of the epigastric area. Onset: The symptoms/episode began/occurred present for several days and worse starting yesterday. Possible causes: unknown. The symptoms are aggravated by food , The symptoms are alleviated by nothing. anti-nausea medication helps a little bit. Associated signs and symptoms: Pertinent positives: abdominal pain, nausea, vomiting, Pertinent negatives: dysuria, fever. Severity of symptoms: in the emergency department the symptoms Patient with continued vomiting, but reports abdominal pain has improved. The patient has been recently seen at the [facility], yesterday. Historical: - Allergies: 16:48 NKA; hj - Home Meds: 19:15 amlodipine 10 mg tab 1 tab once daily [Active]; carvedilol 25 mg Oral tab 1 tab 2 times cc3 per day [Active]; glimepiride 1 mg Oral tab twice a day [Active]; lisinopril 20 mg Oral tab 2 tabs once daily [Active]; metformin 1,000 mg Oral tab 1 tab 2 times per day [Active]; omeprazole 40 mg Oral cpDR 1 cap once daily [Active]; pravastatin 20 mg Oral tab 1 tab once daily [Active]; - PMHx: 16:48 Diabetes - NIDDM; High Cholesterol; Hypertension; hj - PSHx: 16:48 Hernia repair; hj - Immunization history:: Adult Immunizations not up to date. - Social history:: Smoking status: Patient/guardian denies using tobacco, never smoked. - Ebola Screening: : No symptoms or risks identified at this time. ROS: 17:36 Eyes: Negative for injury, pain, redness, and discharge, ENT: Negative for injury, pm1 pain, and discharge. 17:36 Neck: Negative for injury, pain, and swelling, Cardiovascular: Negative for chest pain, palpitations, and edema, Respiratory: Negative for shortness of breath, cough, wheezing, and pleuritic chest pain. 17:36 Back: Negative for injury and pain, : Negative for injury, bleeding, discharge, and swelling, MS/Extremity: Negative for injury and deformity, Skin: Negative for injury, rash, and discoloration. 17:36 Constitutional: Positive for poor PO intake, Negative for chills, fever. 17:36 Abdomen/GI: Positive for abdominal pain, nausea and vomiting, of the epigastric area, Negative for diarrhea, constipation. 20:19 Neuro: Positive for generalized weakness and mental status changes/speech changes pm1 starting yesterday, Negative for numbness, tingling. Exam: 17:36 Constitutional: This is a well developed, well nourished patient who is awake, alert, pm1 and in no acute distress. Head/Face: Normocephalic, atraumatic. Eyes: Pupils equal round and reactive to light, extra-ocular motions intact. Lids and lashes normal. Conjunctiva and sclera are non-icteric and not injected. Cornea within normal limits. Periorbital areas with no swelling, redness, or edema. ENT: Nares patent. No nasal discharge, no septal abnormalities noted. Tympanic membranes are normal and external auditory canals are clear. Oropharynx with no redness, swelling, or masses, exudates, or evidence of obstruction, uvula midline. Mucous membranes moist. Neck: Trachea midline, no thyromegaly or masses palpated, and no cervical lymphadenopathy. Supple, full range of motion without nuchal rigidity, or vertebral point tenderness. No Meningismus. Chest/axilla: Normal chest wall appearance and motion. Nontender with no deformity. No lesions are appreciated. Cardiovascular: Regular rate and rhythm with a normal S1 and S2. No gallops, murmurs, or rubs. Normal PMI, no JVD. No pulse deficits. Respiratory: Lungs have equal breath sounds bilaterally, clear to auscultation and percussion. No rales, rhonchi or wheezes noted. No increased work of breathing, no retractions or nasal flaring. 17:36 Back: No spinal tenderness. No costovertebral tenderness. Full range of motion. Skin: Warm, dry with normal turgor. Normal color with no rashes, no lesions, and no evidence of cellulitis. MS/ Extremity: Pulses equal, no cyanosis. Neurovascular intact. Full, normal range of motion. 17:36 Abdomen/GI: Inspection: abdomen appears normal, Bowel sounds: normal, Palpation: abdomen is soft and non-tender, mass, is not appreciated, rebound tenderness, is not appreciated. 17:36 Neuro: Orientation: is normal, Motor: moves all fours, strength is normal, strength is 5/5 in all extremities, Sensation: is normal, no obvious gross deficits. Vital Signs: 16:46 BP 133 / 43; Pulse 78; Resp 18; Temp 100.2(TE); Pulse Ox 98% on R/A; Weight 68.04 kg; hj Height 5 ft. 6 in. (167.64 cm); Pain 9/10; 17:08 BP 118 / 56; Pulse 74; Resp 14; Temp 98.7(O); Pulse Ox 98% ; bp 17:58 BP 128 / 54; Pulse 78; Resp 16; Pulse Ox 100% ; bp 19:15 BP 158 / 52; Pulse 75; Resp 18 S; Temp 99.7(O); Pulse Ox 100% on R/A; cc3 20:30 BP 157 / 53; Pulse 76; Resp 18 S; Pulse Ox 100% on R/A; cc3 21:33 BP 131 / 42; Pulse 73; Resp 16 S; Pulse Ox 100% on R/A; cc3 22:00 BP 118 / 46; Pulse 74; Resp 18 S; Temp 99(O); Pulse Ox 100% on R/A; cc3 22:30 BP 147 / 99; Pulse 78; Resp 17 S; Temp 99(O); Pulse Ox 100% on R/A; cc3 16:46 Body Mass Index 24.21 (68.04 kg, 167.64 cm) hj MDM: 16:57 Patient medically screened. pm1 17:02 Data reviewed: vital signs. Data interpreted: Pulse oximetry: on room air is 98 %. pm1 Interpretation: normal. 20:30 Counseling: I had a detailed discussion with the patient and/or guardian regarding: the pm1 historical points, exam findings, and any diagnostic results supporting the discharge/admit diagnosis, lab results, radiology results, the need for further work-up and treatment in the [facility]. 20:32 Physician consultation: Tesfaye Wheeler MD was called at 20:32, was contacted at 20:32, pm1 regarding admission, patient's condition, and will see patient tomorrow, would like medications started, Flagyl in addition to Rocephin to cover for possible abdominal infections not shown on CT. 06/13 17:03 Order name: Basic Metabolic Panel pm1 06/13 17:03 Order name: CBC with Diff pm1 06/13 17:03 Order name: Creatinine for Radiology; Complete Time: 18:05 pm1 06/13 17:03 Order name: Hepatic Function; Complete Time: 18:10 pm1 06/13 17:03 Order name: Lipase; Complete Time: 18:10 pm1 06/13 17:05 Order name: Basic Metabolic Panel; Complete Time: 18:10 EDMS 06/13 18:07 Order name: Urine Microscopic Only; Complete Time: 19:10 pm1 06/13 18:51 Order name: Urine Dipstick--Ancillary (enter results); Complete Time: 19:10 dh3 06/13 18:58 Order name: Urine Culture EDNH 06/13 19:34 Order name: CBC Smear Scan; Complete Time: 20:04 EDMS 06/13 19:52 Order name: CT Head Brain wo Cont; Complete Time: 20:25 pm1 06/13 17:03 Order name: IV Saline Lock; Complete Time: 17:44 pm1 06/13 17:03 Order name: Labs collected and sent; Complete Time: 17:44 pm1 06/13 18:07 Order name: Urine Dipstick-Ancillary (obtain specimen); Complete Time: 18:40 pm1 06/13 19:11 Order name: PO challenge; Complete Time: 19:48 pm1 Administered Medications: 17:40 Drug: NS 0.9% 500 ml Route: IV; Rate: bolus; Site: right forearm; bp 18:41 Follow up: IV Status: Completed infusion; IV Intake: 500ml bp 19:25 Drug: Rocephin 1 grams Route: IV; Rate: calculated rate; Site: right forearm; cc3 19:45 Follow up: Response: No adverse reaction; IV Status: Completed infusion; IV Intake: 04orea0 20:45 Drug: Flagyl 500 mg Volume: 100 ml; Route: IVPB; Rate: 200 ml/hr; Infused Over: 30 cc3 mins; Site: right forearm; 21:20 Follow up: Response: No adverse reaction; IV Status: Completed infusion; IV Intake: cc3 100ml Disposition: 06/14 06:48 Co-signature as Attending Physician, Timoteo Palacios MD I agree with the assessment and kdr plan of care. Disposition: 06/13/19 20:31 Hospitalization ordered by Tesfaye Wheeler for Observation. Preliminary diagnosis are Urinary tract infection, site not specified, Nausea and vomiting, Unspecified abdominal pain, Altered mental status, unspecified. - Bed requested for Telemetry/MedSurg (observation). - Status is Observation. cc3 - Condition is Stable. - Problem is new. - Symptoms have improved. UTI on Admission? Yes Signatures: Dispatcher [employer] EDMS Timoteo Palacios MD MD [facility] Shaheen Parekh RN RN hj Garcia, Cindy, RN RN cg Marcos Marquez, WIRE BORDER ASSEMBLER WIRE BORDER ASSEMBLER pm1 Jimmie Cota RN RN bp Cordel, Charlene cc3 Corrections: (The following items were deleted from the chart) 06/13 20:21 17:36 Neuro: Negative for headache, weakness, numbness, tingling, and seizure, pm1 pm1 20:33 20:31 Hospitalization Ordered by Tesfaye Wheeler MD for Observation. Preliminary diagnosis pm1 is Urinary tract infection, site not specified; Nausea and vomiting. Bed requested for Telemetry/MedSurg (observation). Status is Observation. Condition is Stable. Problem is new. Symptoms have improved. UTI on Admission? Yes. pm1 20:44 20:33 06/13/2019 20:31 Hospitalization Ordered by Tesfaye Wheeler MD for Observation. pm1 Preliminary diagnosis is Urinary tract infection, site not specified; Nausea and vomiting; Unspecified abdominal pain. Bed requested for Telemetry/MedSurg (observation). Status is Observation. Condition is Stable. Problem is new. Symptoms have improved. UTI on Admission? Yes. pm1 21:49 20:44 06/13/2019 20:31 Hospitalization Ordered by Tesfaye Wheeler MD for Observation. cg Preliminary diagnosis is Urinary tract infection, site not specified; Nausea and vomiting; Unspecified abdominal pain; Altered mental status, unspecified. Bed requested for Telemetry/MedSurg (observation). Status is Observation. Condition is Stable. Problem is new. Symptoms have improved. UTI on Admission? Yes. pm1 22:38 21:49 06/13/2019 20:31 Hospitalization Ordered by Tesfaye Wheeler MD for Observation. cc3 Preliminary diagnosis is Urinary tract infection, site not specified; Nausea and vomiting; Unspecified abdominal pain; Altered mental status, unspecified. Bed requested for Telemetry/MedSurg (observation). Status is Observation. Condition is Stable. Problem is new. Symptoms have improved. UTI on Admission? Yes. cg
--- NOTE | 2019-06-13 20:32 | ER ---
Nurse's Notes [facility] Name: Jai Roman Age: 74 yrs Sex: Female : 1945 Arrival Date: 06/13/2019 Time: 16:41 Bed 19 Private MD: Diagnosis: Urinary tract infection, site not specified;Nausea and vomiting;Unspecified abdominal pain;Altered mental status, unspecified Presentation: 06/13 16:42 Presenting complaint: Patient states: i was here yesterday morning for abd pain, N/V hj and was Rx with oral antibiotics and still don't feel good, cant eat and drink and cant hold fluids down; reports increasing abd pain; pain of 9/10; reports generalized weakness;. Transition of care: patient was not received from another setting of care. Onset of symptoms. Risk Assessment: Do you want to hurt yourself or someone else? Patient reports no desire to harm self or others. Initial Sepsis Screen: Does the patient meet any 2 criteria? No. Patient's initial sepsis screen is negative. Does the patient have a suspected source of infection? No. Patient's initial sepsis screen is negative. Care prior to arrival: None. 16:42 Method Of Arrival: Ambulatory 16:42 Acuity: ADALBERTO 3 hj Triage Assessment: 16:47 General: Appears in no apparent distress. comfortable, Behavior is cooperative, bp appropriate for age, anxious. Pain: Complains of pain in abdomen. EENT: No deficits noted. Neuro: No deficits noted. Cardiovascular: No deficits noted. Respiratory: No deficits noted. GI: Reports nausea, vomiting. : No signs and/or symptoms were reported regarding the genitourinary system. Derm: No deficits noted. Musculoskeletal: No deficits noted. Historical: - Allergies: 16:48 NKA; hj - Home Meds: 19:15 amlodipine 10 mg tab 1 tab once daily [Active]; carvedilol 25 mg Oral tab 1 tab 2 times cc3 per day [Active]; glimepiride 1 mg Oral tab twice a day [Active]; lisinopril 20 mg Oral tab 2 tabs once daily [Active]; metformin 1,000 mg Oral tab 1 tab 2 times per day [Active]; omeprazole 40 mg Oral cpDR 1 cap once daily [Active]; pravastatin 20 mg Oral tab 1 tab once daily [Active]; - PMHx: 16:48 Diabetes - NIDDM; High Cholesterol; Hypertension; hj - PSHx: 16:48 Hernia repair; hj - Immunization history:: Adult Immunizations not up to date. - Social history:: Smoking status: Patient/guardian denies using tobacco, never smoked. - Ebola Screening: : No symptoms or risks identified at this time. Screenin:09 Abuse screen: Denies threats or abuse. Denies injuries from another. Nutritional bp screening: No deficits noted. Tuberculosis screening: No symptoms or risk factors identified. Fall Risk None identified. 19:47 Patient has been NPO before screening. The patient is alert, able to follow commands. cc3 The patient exhibits slurred or garbled speech. The patient is exhibiting difficulty speaking. The patient does not exhibit difficulty understanding words. The patient is able to swallow own secretions with no drooling or need for suction. Patient tolerated one teaspoon of water. No drooling, immediate coughing, gurgling, or clearing of the throat was noted. The patient did not tolerate 90mL of water. Drooling, immediate coughing, gurgling, or clearing of the throat was noted. Bedside swallow screening discontinued. Patient kept NPO until cleared by Speech Therapy or Physician. The patient failed the bedside swallow screening. The patient will be kept NPO until cleared by Speech Therapy or Physician. Provider notified of bedside swallow screening results: Marcos Marquez NP. Assessment: 17:05 General: SEE TRIAGE NOTE. GI: Abdomen is non-distended. bp 18:00 Reassessment: ALL CURRENT ORDERS COMPLETED, RESULTS PENDING. bp 19:15 Reassessment: Patient appears in no apparent distress at this time. Patient and/or cc3 family updated on plan of care and expected duration. Pain level reassessed. Received this female patient from morning shift OLYA Samuel as a case of UTI. With IV cannula gauge 22 at the right forearm saline locked. Patient's son said her mother became more weak with slurring of speech starting today. General: Appears in no apparent distress. comfortable, Behavior is calm, cooperative. Pain: Denies pain. Neuro: Level of Consciousness is awake, alert, confused. Cardiovascular: Denies chest pain, Patient's skin is warm and dry. Respiratory: Airway is patent Respiratory effort is even, unlabored, Respiratory pattern is regular, symmetrical. GI: Abdomen is round non-distended. : No signs and/or symptoms were reported regarding the genitourinary system. EENT: No signs and/or symptoms were reported regarding the EENT system. Derm: Skin is intact, is healthy with good turgor, Skin is pink, warm \T\ dry. normal. Musculoskeletal: Circulation, motion, and sensation intact. Range of motion: intact in all extremities. 20:41 Reassessment: Patient appears in no apparent distress at this time. No changes from cc3 previously documented assessment. Patient and/or family updated on plan of care and expected duration. Pain level reassessed. 21:32 Reassessment: Patient appears in no apparent distress at this time. No changes from cc3 previously documented assessment. Patient and/or family updated on plan of care and expected duration. Pain level reassessed. 22:06 Reassessment: Patient appears in no apparent distress at this time. No changes from cc3 previously documented assessment. Patient and/or family updated on plan of care and expected duration. Pain level reassessed. Room available in [facility], called telemetry unit for report but as per charge nurse Bob they will just call back. 22:25 Reassessment: OLYA Pollack called and report handed over to her for continuity of care and cc3 management; assisted patient to bedside commode. 22:35 Reassessment: Patient appears in no apparent distress at this time. No changes from cc3 previously documented assessment. Patient and/or family updated on plan of care and expected duration. Pain level reassessed. Patient left ER for admission vitally stable by stretcher escorted by me and the patient's son. No valuables left in the patient's room. Patient denies pain at this time. Patient states feeling better. Vital Signs: 16:46 BP 133 / 43; Pulse 78; Resp 18; Temp 100.2(TE); Pulse Ox 98% on R/A; Weight 68.04 kg; hj Height 5 ft. 6 in. (167.64 cm); Pain 9/10; 17:08 BP 118 / 56; Pulse 74; Resp 14; Temp 98.7(O); Pulse Ox 98% ; bp 17:58 BP 128 / 54; Pulse 78; Resp 16; Pulse Ox 100% ; bp 19:15 BP 158 / 52; Pulse 75; Resp 18 S; Temp 99.7(O); Pulse Ox 100% on R/A; cc3 20:30 BP 157 / 53; Pulse 76; Resp 18 S; Pulse Ox 100% on R/A; cc3 21:33 BP 131 / 42; Pulse 73; Resp 16 S; Pulse Ox 100% on R/A; cc3 22:00 BP 118 / 46; Pulse 74; Resp 18 S; Temp 99(O); Pulse Ox 100% on R/A; cc3 22:30 BP 147 / 99; Pulse 78; Resp 17 S; Temp 99(O); Pulse Ox 100% on R/A; cc3 16:46 Body Mass Index 24.21 (68.04 kg, 167.64 cm) hj ED Course: 16:41 Patient arrived in ED. as 16:46 Triage completed. hj 16:46 Arm band placed on right wrist. hj 16:51 Jimmie Cota, OLYA is Primary Nurse. bp 16:54 Marcos Marquez NP is PHCP. pm1 16:54 Timoteo Palacios MD is Attending Physician. pm1 17:09 Patient has correct armband on for positive identification. Bed in low position. Call bp light in reach. Side rails up X2. Adult w/ patient. 17:40 Inserted saline lock: 22 gauge in right forearm, using aseptic technique. Blood bp collected. 18:14 Basic Metabolic Panel Sent. bp 20:[address] nj 20:08 CT Head Brain wo Cont In Process Unspecified. EDMS 20:31 Tesfaye Wheeler MD is Hospitalizing Provider. pm1 22:35 No provider procedures requiring assistance completed. Patient admitted, IV remains in cc3 place. Administered Medications: 17:40 Drug: NS 0.9% 500 ml Route: IV; Rate: bolus; Site: right forearm; bp 18:41 Follow up: IV Status: Completed infusion; IV Intake: 500ml bp 19:25 Drug: Rocephin 1 grams Route: IV; Rate: calculated rate; Site: right forearm; cc3 19:45 Follow up: Response: No adverse reaction; IV Status: Completed infusion; IV Intake: [id number] 20:45 Drug: Flagyl 500 mg Volume: 100 ml; Route: IVPB; Rate: 200 ml/hr; Infused Over: 30 cc3 mins; Site: right forearm; 21:20 Follow up: Response: No adverse reaction; IV Status: Completed infusion; IV Intake: cc3 100ml Intake: 18:41 IV: 500ml; Total: 500ml. bp 19:45 IV: 10ml; Total: 510ml. cc3 21:20 IV: 100ml; Total: 610ml. cc3 Outcome: 20:31 Decision to Hospitalize by Provider. pm1 22:35 Admitted to Tele accompanied by nurse, family with patient, via stretcher, room 424, cc3 with chart, Report called to OLYA Pollack 22:35 Condition: stable 22:35 Instructed on the need for admit, Demonstrated understanding of instructions. 22:38 Patient left the ED. cc3 Signatures: Dispatcher [employer] EDMS Cherri Alcantara Henry RN RN hj Marcos Marquez, [employer] pm1 Jose Alfredo Macias Brian RN RN bp Malena Jacobs cc3 Corrections: (The following items were deleted from the chart) 16:50 16:46 Pulse 78bpm; Resp 18bpm; Pulse Ox 98% RA; Temp 100.2F Temporal; 68.04 kg; Height hj 5 ft. 6 in.; BMI: 24.2; Pain 9/10; hj 21:31 19:15 Reassessment: Patient appears in no apparent distress at this time. Patient cc3 and/or family updated on plan of care and expected duration. Pain level reassessed. Received this female patient from morning shift OLYA Samuel as a case of UTI. With IV cannula gauge 22 at the right forearm saline locked. Patient's son said her mother became more weak with slurring of speech starting today. cc3 21:31 19:15 Neuro: Level of Consciousness is awake, alert, obeys commands, cc3 cc3 21:33 20:41 Reassessment: Patient appears in no apparent distress at this time. Patient cc3 and/or family updated on plan of care and expected duration. Pain level reassessed. cc3 22:37 22:00 BP 118 / 46; Pulse 74bpm; Resp 18bpm; Spontaneous; Pulse Ox 100% RA; cc3 cc3
[2019-06-13] MEDS ORDERED: METRONIDAZOLE 500mg IVPB 500 MG/100 ML BAG IV ONE (21:00)
[2019-06-13] MEDS ORDERED: GLUCAGON 1 MG/VIAL IM PRN (21:01)
[2019-06-13] MEDS ORDERED: D50W 25 GM/50 ML SYRINGE IV PRN (21:01)
[2019-06-13] MEDS ORDERED: ONDANSETRON 4 MG/2 ML VIAL IV PRN (21:01)
[2019-06-14] MEDS: METRONIDAZOLE 500mg IVPB 500 MG/100 ML BAG IV SCH ×3 (05:07→22:32)
[2019-06-14 06:15] LABS: Absolute Lymphocytes (CBC) 1.7 K/uL (0.7-4.9); Basophils % 0.6 % (0-1.3); Lymphocytes % 7.6 % (15.3-44.8); MPV 8.4 fL (7.6-11.3); RBC Red Blood Cell Count 3.56 M/uL (3.86-4.86)
[2019-06-14 06:16] VITALS: BMI 23.4
[2019-06-14 06:35] LABS: Albumin 2.5 g/dL (3.4-5.0); Bilirubin Direct 0.1 mg/dL (0-0.2); Bilirubin Total 0.4 mg/dL (0.2-1.0); Potassium 3.1 mmol/L (3.5-5.1); Protein, Total 7.4 g/dL (6.4-8.2)
[2019-06-14] MEDS ORDERED: INSULIN -REGULAR HUMAN 50 UNIT/0.5 ML ML SQ SCH (07:30)
[2019-06-14] MEDS ORDERED: PNEUMOCOCCAL VACCINE 0.5 ML IMVAC ONE (08:00)
[2019-06-14 08:05] LABS: Blood Morphology Comment NOT SEEN (NOT SEEN); Platelet Estimate ADEQ
[2019-06-14] MEDS ORDERED: GLUCAGON 1 MG/VIAL IM PRN (08:45)
[2019-06-14] MEDS ORDERED: D50W 25 GM/50 ML SYRINGE IV PRN (08:45)
[2019-06-14] MEDS ORDERED: NACHLORIDE 0.45% 1,000 ML IV SCH (09:00)
[2019-06-14] MEDS ORDERED: CEFTRIAXONE 1 GM/NS 50 ML 1 GM/50 ML BAG IV SCH (09:00)
[2019-06-14] MEDS ORDERED: CEFTRIAXONE/SWI 1gm 1 GM/10 ML SYR IV SCH (09:00)
[2019-06-14] MEDS: CARVEDILOL 25 MG TAB PO SCH ×2 (09:55→21:00)
--- NOTE | 2019-06-14 10:37 | RAD REPORT ---
EXAM DESCRIPTION: CT - Abdomen Pelvis Wo Contrast - 06/14/2019 9:09 am CLINICAL HISTORY: Abdominal pain, abdominal tenderness, elevated white blood cell count, history domonique sea and vomiting COMPARISON: CT imaging June 12 2019 and February 11, 2019: Limited review of January 2016 CT imaging TECHNIQUE: Axial [address] imaging of the abdomen and pelvis was performed without IV contrast. No IV contrast was given because of allergy, abnormal renal function, patient refusal or physician re quest. No oral contrast administered. All CT scans are performed using dose optimization technique as appropriate and may include automated exposure control or mA/KV adjustment according to patient size. FINDINGS: No suspicious findings in the lung bases. The liver, spleen and pancreas show no suspicious findings on non-contrast imaging. Cholecystectomy c lips are present. No biliary tree dilatation. No hydronephrosis or suspicious renal mass. Right adrenal gland is normal. Left adrenal mass has not changed back to 2016. Isodense renal masses and pyelonephritis cannot be excluded in the absence of IV contrast. Perinephric stranding is present. This was present on the 2 recent examinations but not substantially different. Small upper pole right renal mass not substantially different when comparin g back to 2016. This believed to be an incidental cyst. No dilated bowel loops or bowel wall thickening. No free air, free fluid or inflammatory stranding. N o hernia, mass or bulky lymphadenopathy. There is moderate left-sided diverticulosis without divertic ulitis. Small partially calcified uterus is present. Both ovaries are seen with no acute findings see n. Urinary bladder is distended by a large volume. No bladder wall thickening or mass. No calcification or other intraluminal filling defects seen. No CT finding on noncontrast imaging for cystitis. Disc and bony degenerative changes are present. No acute or destructive bone process seen. IMPRESSION: No acute abdomen or pelvis finding seen that would explain abnormal white blood cell cou nt. Patient does have stranding in the perinephric fat around each kidney. Pyelonephritis, cystitis or ot her acute process cannot be excluded in the absence of IV contrast. Patient has prominent left-sided diverticulosis without diverticulitis. Urinary bladder is distended the without wall thickening or mass. No abnormality near the trigone.
[2019-06-14] MEDS ORDERED: AMLODIPINE 5 MG TAB PO ONE (11:17)
[2019-06-14] MEDS: INSULIN -REGULAR HUMAN 50 UNIT/0.5 ML ML SQ SCH ×2 (12:00→18:00)
[2019-06-14] MEDS: NACHLORIDE 0.45% 1,000 ML IV SCH (12:00)
--- NOTE | 2019-06-14 12:58 | RAD REPORT ---
EXAM DESCRIPTION: Nirali Single View06/14/2019 12:47 pm CLINICAL HISTORY: Chest pain COMPARISON: June 12, 2019 FINDINGS: The lungs appear clear of acute infiltrate. The heart is borderline enlarged IMPRESSION: No acute abnormalities displayed
--- NOTE | 2019-06-14 13:41 | P.CNS ---
Date of Consult: 06/14/19 Reason for Consult: JUSTUS Chief Complaint: abd pain, confusion History of Present Illness: pt is unable to provide Hx, Hx obtained from chart A 74 Y/o woman with PMHx of DM, HTN . CKD with baseline Cr ~3.0 pt presented for confusion and abd pain, with nausea and vomiting pt currently states she still have pain in Er Cr 3.3, WBc 18k , no fever or chills Allergies metformin Allergy (Verified 02/13/19 11:36) Itching/Hives/Rash Home Medications: Carvedilol [Coreg] 25 mg PO BID 02/17/16 Lisinopril/Hydrochlorothiazide [Lisinopril-Hctz 20-12.5 mg Tab] 2 tab PO DAILY 02/17/16 Pravastatin Sodium [Pravachol] 20 mg PO BEDTIME 02/17/16 Glimepiride [Amaryl] 1 mg PO BID 02/12/19 Bimatoprost [Lumigan Opthalmic Drops*] 1 gtt OPTH BID 06/13/19 Hydralazine [Apresoline*] 25 mg PO BID 06/13/19 Omeprazole 20 mg PO DAILY 06/13/19 Ondansetron [Zofran (Odt)*] 4 mg PO Q12H 06/13/19 - Past Medical/Surgical History Diabetic: Yes -: HTN -: DM -: HLD -: Glaucoma -: Rt eye cornia replacement -: Hernia Repair -: Cholecystectomy - Family History Father Medical History: Hypertension, Diabetes Mother Notes: mother when pt was 2 years. - Social History Smoking Status: Never smoker Alcohol use: No CD- Drugs: No Caffeine use: Yes Place of Residence: Home Physical Examination Temp Pulse Resp BP Pulse Ox 97.4 F 75 18 140/85 95 06/14/19 12:00 06/14/19 12:45 06/14/19 12:00 06/14/19 12:45 06/14/19 12:00 General: Confused HEENT: Atraumatic Neck: Supple, Without JVD or thyroid abnormality Respiratory: Clear to auscultation bilaterally, Normal air movement Cardiovascular: No edema, Normal pulses, Regular rate/rhythm, Normal S1 S2, No gallops, No rubs, No murmurs Gastrointestinal: Normal bowel sounds, Tenderness Musculoskeletal: No clubbing, No swelling Integumentary: No rashes Laboratory Data (last 24 hrs) 06/13/19 17:40: Creatinine 3.51 H 06/13/19 17:40: WBC 18.4 H D, Hgb 10.0 L, Hct 29.6 L, Plt Count 237 06/13/19 17:40: Sodium 135 L, Potassium 3.8, BUN 44 H, Creatinine 3.44 H, Glucose 145 H, Total Bilirubin 0.4, AST 23, ALT 24, Alkaline Phosphatase 97, Lipase 183 - Problems (1) Abdominal pain Onset Date: 02/24/16 Current Visit: No Status: Acute (2) Renal failure (ARF), acute on chronic Current Visit: No Status: Acute Conclusions/Impression: Justus on CKD possibly due to prerenal azotemia +/- obstructive uropathy Abd ct; no hydro will order renal US Bustos cath if retaining urine Cont gentle hydration baseline Cr ~3.0 Abd pain with leuckocytosis Ad ct -ve will send for Bcx will check lactic acid consider surgery evaluation if no improvement Confusion brain MRI -ve possibly due to sepsis hypokalmeia due to poor oral intake will replace will check Mg HTN will add amlodipine Dm as per primary renal mass stable since 2016 UTI cont abx
[2019-06-14] MEDS ORDERED: POTASSIUM 25 MEQ EFFERV TAB PO ONE (14:10)
--- NOTE | 2019-06-14 14:13 | RAD REPORT ---
EXAM DESCRIPTION: US - Renal Ultrasound-Complete - 06/14/2019 1:49 pm CLINICAL HISTORY: Urinary retention COMPARISON: None. FINDINGS: The right kidney measures 9 cm with an increased echotexture. 2 centimeter right renal cys t The left kidney measures 9 cm with an increased echotexture. Hydronephrosis is not seen. No gross abnormality of bladder is seen IMPRESSION: Increased renal echotexture consistent with parenchymal disease
[2019-06-14] MEDS: PIPER/TAZO/NS 2.25gm 2.25 GM/50 ML BAG IVPB SCH (17:47)
[2019-06-14] MEDS: LUMIGAN OPTH SCH (21:00)
[2019-06-15] MEDS: PIPER/TAZO/NS 2.25gm 2.25 GM/50 ML BAG IVPB SCH ×3 (00:59→17:12)
--- NOTE | 2019-06-15 04:10 | HP ---
Date of Admission: 06/13/2019 Chief Complaint: Abdominal pain, nausea, vomiting, elevated white count. History Of Present Illness: This patient was seen in the emergency room the day before with the naus ea, vomiting. She was worked up and discharged home. Patient returned because of continuous abdomin al pain, nausea, and vomiting. Patient had evaluation done. Her white count was normal during the p revious ER visit; however, it was elevated at this time. There was bacteriuria. Patient is admitted with a diagnosis of urinary tract infection. Patient cannot give meaningful history as she is confu sed about the whole situation. However, her medical records are reviewed. 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 Past Surgical History: Positive for hernia surgery. Home Medicines: Amlodipine, carvedilol, glimepiride, lisinopril, metformin, Prilosec, Pravachol. Allergies: NONE. Review of Systems: Patient denied any chest pain or shortness of breath. Physical Examination: General: Revealed a 74-year-old female, no evidence of head injury. Neck: Supple. Chest: Clear. Heart: Regular. Abdomen: Mild diffuse tenderness. No palpable mass. Bowel sounds present. Extremities: No edema. Laboratory Data: White count 18.4 on admission, today it is 22.9. Chem profile: BUN 40, creatinine 3.3, random blood sugar of 145. Lipase normal. CAT scan of the abdomen, no evidence of acute pathology. Ultrasound of the kidneys, no evidence of o bstruction. Assessment: 1.Abdominal pain with nausea, vomiting, and elevated white count, cause unclear. 2.Mstgb-pp-khhktsu renal failure. 3.Type 2 diabetes. 4.Hypertension. 5.Hyperlipidemia. Plan: It is not clear from the CAT scan findings as to the source of her pain. Surgical consult has been done to see whether any suggestions will be available. Renal consultation is done for the jas daniels of acute on chronic renal failure. Meanwhile, patient will be switched to Zosyn along with Fl agyl and repeat CBC will be done. NILESH/PENG Voice ID: [id number]
[2019-06-15] MEDS: METRONIDAZOLE 500mg IVPB 500 MG/100 ML BAG IV SCH ×3 (05:39→21:34)
[2019-06-15] MEDS: INSULIN -REGULAR HUMAN 50 UNIT/0.5 ML ML SQ SCH ×4 (06:00→17:12)
[2019-06-15 06:28] LABS: Albumin 2.4 g/dL (3.4-5.0); Bilirubin Total 0.4 mg/dL (0.2-1.0); Magnesium 2.7 mg/dL (1.8-2.4); Potassium 3.5 mmol/L (3.5-5.1); Protein, Total 7.4 g/dL (6.4-8.2)
[2019-06-15 07:56] LABS: Absolute Lymphocytes (CBC) 1.3 K/uL (0.7-4.9); Basophils % 0.1 % (0-1.3); Hematocrit 31.8 % (36.0-45.0); Lymphocytes % 6.2 % (15.3-44.8); MPV 7.8 fL (7.6-11.3)
[2019-06-15] MEDS: NACHLORIDE 0.45% 1,000 ML IV SCH ×2 (08:00→13:35)
[2019-06-15] MEDS: CARVEDILOL 25 MG TAB PO SCH ×2 (09:00→21:00)
[2019-06-15] MEDS: LUMIGAN OPTH SCH (21:00)
--- NOTE | 2019-06-16 00:17 | PN ---
Date of Progress Note: 06/15/2019 Chief Complaint: Elevated BUN and creatinine. History Of Present Illness: Patient was admitted to the hospital because of generalized weakness. S he was found to have severe leukocytosis. She denies fever, chills. She has chronic kidney disease stage 4. Baseline creatinine level is 3.0. On arrival to the hospital, she was evaluated for sepsis and was found to have creatinine of 3.3. Patient has multiple medical problems including history of hypertension, diabetes mellitus, diabetic kidney disease. Review of Systems: Denies fever, chills. Physical Examination: Lungs: Clear to auscultation bilaterally. Heart: S1, S2. Abdomen: Soft, benign. Extremities: Minimal edema. Laboratory Data: WBC 18.4, sodium 135, potassium 3.8, BUN 44, creatinine 3.44. Impression And Plan: 1.Acute on chronic kidney injury with prerenal azotemia. Plan is to rule out obstructive uropathy. Abdominal CT scan per stone protocol did not show hydronephrosis. Patient will have renal ultrasoun d. Continue Bustos catheter for her urinary retention. Continue gentle hydration to treat acute kidn ey injury. Baseline creatinine is 3.0. 2.Abdominal pain with leukocytosis. Patient was ruled out for perinephric abscess. Continue to mon itor. Plan is to check lactic acid level. 3.Confusion, altered mental status secondary to sepsis. Patient may need further workup per primary team. 4.Hypokalemia secondary to decreased p.o. intake. Plan is to replace potassium level and monitor ma gnesium and phosphorus level. 5.Hypertension. Continue blood pressure medication. Amlodipine was started for adequate blood pres sure control. 6.Urinary tract infection. Continue antibiotics. 7.Renal mass. Recommend Urology. 8.Diabetes mellitus. Continue insulin. EB/MODL Voice ID: [id number] Report ID: [id number]
[2019-06-16] MEDS: PIPER/TAZO/NS 2.25gm 2.25 GM/50 ML BAG IVPB SCH ×3 (01:05→18:48)
[2019-06-16] MEDS: METRONIDAZOLE 500mg IVPB 500 MG/100 ML BAG IV SCH (05:05)
[2019-06-16] MEDS: INSULIN -REGULAR HUMAN 50 UNIT/0.5 ML ML SQ SCH ×4 (06:00→18:49)
[2019-06-16 06:03] LABS: Absolute Lymphocytes (CBC) 1.4 K/uL (0.7-4.9); Basophils % 0.1 % (0-1.3); Hematocrit 33.3 % (36.0-45.0); Lymphocytes % 6.4 % (15.3-44.8); MPV 7.4 fL (7.6-11.3)
[2019-06-16 06:26] LABS: Albumin 2.2 g/dL (3.4-5.0); Bilirubin Total 0.5 mg/dL (0.2-1.0); Potassium 3.1 mmol/L (3.5-5.1); Protein, Total 7.2 g/dL (6.4-8.2)
[2019-06-16] MEDS: NACHLORIDE 0.45% 1,000 ML IV SCH (07:25)
[2019-06-16] MEDS: CARVEDILOL 25 MG TAB PO SCH ×2 (09:00→21:00)
--- NOTE | 2019-06-16 10:57 | P.CNS ---
Date of Consult: 06/16/19 Chief Complaint: Elevated white count History of Present Illness: Patient is 74 years of age unresponsive admitted yesterday morning for abdominal pain nausea vomiting and was treated with oral antibiotics [place] eat and drink also reported generalized weakness/patient has acute on chronic renal failure Allergies metformin Allergy (Verified 02/13/19 11:36) Itching/Hives/Rash Home Medications: Carvedilol [Coreg] 25 mg PO BID 02/17/16 Lisinopril/Hydrochlorothiazide [Lisinopril-Hctz 20-12.5 mg Tab] 2 tab PO DAILY 02/17/16 Pravastatin Sodium [Pravachol] 20 mg PO BEDTIME 02/17/16 Glimepiride [Amaryl] 1 mg PO BID 02/12/19 Bimatoprost [Lumigan Opthalmic Drops*] 1 gtt OPTH BID 06/13/19 Hydralazine [Apresoline*] 25 mg PO BID 06/13/19 Omeprazole 20 mg PO DAILY 06/13/19 Ondansetron [Zofran (Odt)*] 4 mg PO Q12H 06/13/19 - Past Medical/Surgical History Diabetic: Yes -: HTN -: DM -: HLD -: Glaucoma -: Rt eye cornia replacement -: Hernia Repair -: Cholecystectomy - Family History Father Medical History: Hypertension, Diabetes Mother Notes: mother when pt was 2 years. - Social History Smoking Status: Never smoker Alcohol use: No CD- Drugs: No Caffeine use: Yes Place of Residence: Home Review of Systems is unable to be obtained Physical Examination Temp Pulse Resp BP Pulse Ox 98.1 F 76 24 H 171/70 H 96 06/16/19 08:00 06/16/19 08:00 06/16/19 08:00 06/16/19 08:00 06/16/19 08:00 General: Unresponsive, Comatose Neck: Supple Respiratory: Clear to auscultation bilaterally Cardiovascular: No edema, Regular rate/rhythm, Normal S1 S2 Gastrointestinal: Normal bowel sounds, Soft and benign, Non-distended Musculoskeletal: No clubbing, No swelling, No contractures Integumentary: No rashes, No breakdown Neurological: Other (Patient does move all her extremities unresponsive to deep external stimulation) - Problems (1) Altered mental status Current Visit: Yes Status: Acute Plan: Patient is 74 years of age admitted with nausea vomiting abdominal pain altered mental status E. coli and Klebsiella was isolated in the urine is sensitive to fluoroquinolones also has acute on chronic renal insufficiency currently unresponsive patient's white count is significantly elevated urinalysis shows nitrite and leukocyte Estrace negative blood cultures are so far negative blood pressure elevated oxygenation satisfactory CT scans of the abdomen nondiagnostic chest x-rays also clear CT of the head is also negative
[2019-06-16] MEDS ORDERED: KCL 20 MEQ/100 mL IVPB 20 MEQ/100 ML BAG IV SCH (12:00)
[2019-06-16] MEDS ORDERED: THIAMINE 200 MG/2 ML INJ IVP SCH (12:00)
[2019-06-16] MEDS ORDERED: D5W 1,000 ML with POTASSIUM CL 20 MEQ IV SCH ×2 (14:00)
[2019-06-16 14:12] LABS: Arterial Blood Carboxyhemoglob 1.3 % (0-1.5); Blood Gas Oxyhemoglobin 91.7 % (94-97); Blood O2 Saturation 93.6 % (92-98.5)
[2019-06-16 15:54] VITALS: O2SAT 97
[2019-06-16] MEDS ORDERED: AMPICILLIN SODIUM 1 GM/VIAL IVPB SCH (18:00)
[2019-06-16] MEDS ORDERED: AMPICILLIN SODIUM 1 GM in NA CHLORIDE 0.9% 100 ML IV SCH (18:00)
[2019-06-16] MEDS: LUMIGAN OPTH SCH (21:00)
[2019-06-16 23:13] VITALS: BP 150/70; TEMP 98.1
--- NOTE | 2019-06-17 00:44 | PN ---
Date of Progress Note: 06/16/2019 Chief Complaint: Elevated BUN and creatinine. History Of Present Illness: The patient came to the hospital because of generalized weakness. She w as found to have severe leukocytosis. The patient has chronic kidney disease stage 4. Baseline crea tinine level is 3.0. On arrival to the hospital, the patient was evaluated for sepsis. Creatinine l evel was 3.3. The patient has multiple medical problems including history of hypertension, diabetes mellitus, and diabetic kidney disease. Review of Systems: Denies chest pain, palpitations. Physical Examination: Lungs: Clear to auscultation bilaterally. Heart: S1, S2. Abdomen: Soft, benign, nontender. Extremities: Slight edema. Lab Work: WBC 21.3, hemoglobin 11.3, platelet count is 372,000. Sodium 146, potassium 3.1, chloride 111, CO2 of 17, BUN 45, creatinine 3.36, glucose 151, albumin 2.2. Impression And Plan: 1.Acute on chronic kidney injury. Creatinine has not improved over the last 24 hours. Patient has hypokalemia and hypernatremia. IV fluids were adjusted and the patient is on D5W with potassium repl acement. 2.Metabolic acidosis, mild. IV fluids were adjusted. Consider sodium bicarbonate when potassium le lakshmi is replaced. 3.Diabetes mellitus. Continue insulin. 4.Urinary tract infection. Continue antibiotics. 5.History of kidney mass. Follow up with Urology. 6.Hypokalemia, replacement with potassium was ordered. Monitor magnesium level. Adjust magnesium r eplacement as needed. FRAN/MARINAL Voice ID: [id number] Report ID: [id number]
--- NOTE | 2019-06-17 02:19 | PN ---
The patient continues to have confusion. She is afebrile. However, her white count continues to be high. In view of this, second opinion was requested from Dr. Rhodes. He also is not sure where th e confirmed source of infection is as there is need for Infectious Disease consult, possibly Neurolog y consult. Transfer has been initiated. I spoke to the hospitalist as well as neurologist at [facility]. They accepted the transfer. The patient will be transferred for further manageme . Until then she will be continued on IV antibiotic, IV fluids. RRK/MODL Voice ID: [id number] Report ID: [id number]
== END 2019-06-16 21:35 | disposition short-term general hospital (02) | DRG 872 ==
LOC: ER 16:39 → ERHOLD 21:19 → 4TH 22:28 → OBSVTOIN 06-15 10:35
PROVIDERS: ADMIT Internal Medicine; ATTEND Internal Medicine
DX: A41.9 Sepsis, unspecified organism (principal); N18.4 Chronic kidney disease, stage 4 (severe); N17.9 Acute kidney failure, unspecified; E87.2 Acidosis; N39.0 Urinary tract infection, site not specified; E87.0 Hyperosmolality and hypernatremia; I12.9 Hypertensive chronic kidney disease with stage 1 through stage 4 chronic kidney disease, or unspecified chronic kidney disease; R65.20 Severe sepsis without septic shock; E11.22 Type 2 diabetes mellitus with diabetic chronic kidney disease; E87.6 Hypokalemia; B96.20 Unspecified Escherichia coli [E. coli] as the cause of diseases classified elsewhere; B96.1 Klebsiella pneumoniae [K. pneumoniae] as the cause of diseases classified elsewhere; R79.89 Other specified abnormal findings of blood chemistry; N28.89 Other specified disorders of kidney and ureter; E78.5 Hyperlipidemia, unspecified
CPT/HCPCS: 36415; 70450; 71045; 74176; 76770; 80048; 80053; 80076; 81003; 81015; 82140; 82805; 82962; 83605; 83690; 83735; 83880; 84100; 84132; 84484; 85025; 85610; 87040; 87077; 87086; 87088; 87186; 93005; 96361; 96365; 96367; 96374; 96375; 99284; 99285; C9113; G0378; J0290; J0696; J2405; J3411; J7030